=== PATIENT | male | born 1975 | race African-American/Black ===

== ENCOUNTER 2024-08-13 20:01 | Emergency (ER) | payer MEDICARE, SELFPAY ==
--- NOTE | ~2024-08-13 | XR_ITS ---
XR chest 2V Ordering provider: Leo Florence MD History: 48 years Male with . Chest pain . Comparison: None. FINDINGS: MEDIASTINUM: The cardiac silhouette is not enlarged. LUNGS: No infiltrates, effusions or pneumothorax. OTHER: No free air under the diaphragm. IMPRESSION: No acute cardiopulmonary pathology. Reviewed, dictated and finalized at location A. [facility]
[2024-08-13 20:03] VITALS: BP 123/80; PULSE 74; RESP 17; O2SAT 99
[2024-08-13 20:08] VITALS: O2SAT 98
[2024-08-13 20:09] VITALS: PULSE 79
[2024-08-13 20:10] VITALS: BP 123/80; PULSE 78; RESP 13; TEMP 36.6; O2SAT 99
--- NOTE | 2024-08-13 20:19 | ECG_ITS ---
Test Date: 2024-08-13 20:07:58 Measurements Intervals [place] Rate: 75 P: 38 NE: 179 QRS: 11 QRSD: 98 T: 1 QT: 355 QTc: 397 Interpretive Statements SINUS RHYTHM WITH SINUS ARRHYTHMIA INDETERMINATE AXIS ATYPICAL ECG No previous ECG available for comparison Electronically Signed On 08-14-2024 07:56:34 CDT by Petar Nuñez M.D.
[2024-08-13] MEDS: ASPIRIN 81 MG CHEWABLE TABLET 324 MG PO (20:31)
[2024-08-13] MEDS: SODIUM CHLORIDE 0.9% IV 1,000 ML 999 ML IV CONT (20:31)
--- OUTSIDE RECORDS SUMMARY | 2024-08-13 20:35 | XMS_ITS | Patient Health Summary ---
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 This disclosure is being madepursuant to the Care Everywhere program and may not contain all information available regarding this patient. Last updated 18.[facility] [place] Allergies No known active allergies Medications * Be aware that medications may not be up to date on this document. Alwaysverify current medications with the patient. 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 1 refill by 05/22/2021 * atorvastatin (Lipitor) 20 MG tablet(Started 06/28/2023) Take 0.5 (one-half) tablet by mouth once daily * gabapentin (Neurontin) 300 MG capsule(Started 08/24/2023) TAKE 1 Capsule BY MOUTH EVERY DAY IN THE EVENING * paliperidone CR 24hr (Invega) 9 MG tablet(Started 06/27/2023) * pantoprazole EC (Protonix) 40 MG tablet(Started 08/24/2023) Take 1 (one) tablet by mouth once daily * Semaglutide (2 MG/DOSE) 8 MG/3ML Subcutaneous Solution Pen-injector (Ozempic) (Started 05/07/2023) Inject 2 (two) mg subcutaneously every 7 days * metFORMIN (Glucophage) 1000 MG tablet(Started 06/01/2023) Take 1 (one) tablet by mouth 2 times daily * ondansetron, disintegrating, (Zofran ODT) 4 MG tablet(Started 04/18/2024) Take 1 (one) tablet by mouth every 6 hours as needed for Nausea/Vomiting Allow tablet to dissolve on the tongue * pantoprazole EC (Protonix) 40 MG tablet(Started 07/08/2024) Take 1 (one) tablet by mouth once daily * acetaminophen (Tylenol) 325 MG tablet(Started 07/11/2024) Take 2 (two) tablets by mouth every 6 hours as needed for Fever or Pain Maximum allowable Acetaminophen amount = 4 Grams (4000 mg) / 24 hours. Active Problems Problem Noted Date Diagnosed Date Malingering 02/20/2020 Gynecomastia 11/28/2019 Schizophrenia 08/03/2019 Paranoid schizophrenia 11/11/2018 Social History Tobacco Use Types Packs/Day Years Used Date Smoking Tobacco: Some Days Cigarettes Smokeless Tobacco: Never Tobacco Cessation:Ready to Q uit: Not Asked; Counseling Given: Not Answered Alcohol Use Standard Drinks/Week Comments Yes 0 (1 standard drink = 0.6 oz pur e alcohol) occasional Sex and Gender Information Value Date Recorded Sex Assigned at Not on file Gender Identity Not on file Sexual Orientation Not on file Last Filed Vital Signs Vital Sign Reading Time Taken Comments Blood Pressure 114/85 07/11/2024 5:39 PM [facility] Pulse 58 07/11/2024 5:39 PM [facility] Temperature 36.3 C (97.4 F) 07/11/2024 5:39 PM [facility] Respiratory Rate 18 07/11/2024 5:39 PM [facility] Oxygen Saturation 100% 07/11/2024 5:39 PM [facility] Inhaled Oxygen Concentration - - Weight 98.4 kg (217 lb) 07/11/2024 12:55 PM [facility] Height 175.3 cm (5' 9 ) 07/11/2024 12:55 PM [facility] Body Mass Index 32.05 07/11/2024 12:55 PM [facility] Procedures * URINALYSIS REFLEX MICROSCOPIC REFLEX CULTURE(Performed 07/11/2024) * CHLAMYDIA + GC AMPLIFIED PROBE(Performed 07/11/2024) * CARDIAC EKG ORDER(Performed 07/11/2024) * EKG 12-LEAD(Performed 07/07/2024) Performed for Other chest pain * TROPONIN-I HIGH SENSITIVE BASELINE + 1HR(Performed 07/07/2024) * MAGNESIUM BLOOD(Performed 07/07/2024) * COMPREHENSIVE METABOLIC PANEL(Performed 07/07/2024) * CBC W AUTO DIFFERENTIAL(Performed 07/07/2024) * XR CHEST 2VW(Performed 07/07/2024) Performed for Other chest pain * XR CHEST 2VW(Performed 04/18/2024) Performed for Dyspnea and respiratory abnormalities * URINALYSIS REFLEX MICROSCOPIC REFLEX CULTURE(Performed 04/17/2024) * HYDROXYBUTYRATE BETA(Performed 04/17/2024) * BLOOD GASES FARIDEH + COOX PANEL(Performed 04/17/2024) * MAGNESIUM BLOOD(Performed 04/17/2024) * COMPREHENSIVE METABOLIC PANEL(Performed 04/17/2024) * CBC W AUTO DIFFERENTIAL(Performed 04/17/2024) * CARDIAC EKG ORDER(Performed 01/14/2024) * GLUCOSE - POINT OF CARE(Performed 01/12/2024) * TROPONIN-I HIGH SENSITIVE REFLEX 1HOUR(Performed 01/12/2024) * EKG 12-LEAD(Performed 01/12/2024) Performed for Weakness * HYDROXYBUTYRATE BETA(Performed 01/12/2024) * BLOOD GASES FARIDEH + COOX PANEL(Performed 01/12/2024) * TROPONIN-I HIGH SENSITIVE BASELINE + 1HR(Performed 01/12/2024) * MAGNESIUM BLOOD(Performed 01/12/2024) * COMPREHENSIVE METABOLIC PANEL(Performed 01/12/2024) * CBC W AUTO DIFFERENTIAL(Performed 01/12/2024) * SARS-COV-2 (COVID-19) RAPID(Performed 01/12/2024) * XR CHEST 2VW(Performed 01/12/2024) Performed for Weakness * CARDIAC EKG ORDER(Performed 11/20/2023) * GLUCOSE - POINT OF CARE(Performed 11/19/2023) * EKG 12-LEAD(Performed 11/19/2023) Performed for Chest pain, unspecified type * TROPONIN-I HIGH SENSITIVE(Performed 11/19/2023) * URINALYSIS REFLEX MICROSCOPIC REFLEX CULTURE(Performed 11/19/2023) * PHOSPHORUS BLOOD(Performed 11/19/2023) * MAGNESIUM BLOOD(Performed 11/19/2023) * COMPREHENSIVE METABOLIC PANEL(Performed 11/19/2023) * CBC W AUTO DIFFERENTIAL(Performed 11/19/2023) * GLUCOSE - POINT OF CARE(Performed 10/17/2023) * GLUCOSE - POINT OF CARE(Performed 10/17/2023) * GLUCOSE - POINT OF CARE(Performed 10/17/2023) * GLUCOSE - POINT OF CARE(Performed 10/17/2023) * GLUCOSE - POINT OF CARE(Performed 10/17/2023) * GLUCOSE - POINT OF CARE(Performed 10/17/2023) * HYDROXYBUTYRATE BETA(Performed 10/17/2023) * COMPREHENSIVE METABOLIC PANEL(Performed 10/17/2023) * CBC W AUTO DIFFERENTIAL(Performed 10/17/2023) * GLUCOSE - POINT OF CARE(Performed 10/17/2023) * URINALYSIS REFLEX MICROSCOPIC REFLEX CULTURE(Performed 06/30/2023) * TRICHOMONAS VAGINALIS AMPLIFIED PROBE(Performed 06/30/2023) * CHLAMYDIA + GC AMPLIFIED PROBE(Performed 06/30/2023) * CT LUMBAR SPINE WO CONTRAST(Performed 06/30/2023) Performed for Numbness and tingling of left leg * CT CERVICAL SPINE WO CONTRAST(Performed 06/30/2023) Performed for Numbness and tingling of left leg * PHOSPHORUS BLOOD(Performed 06/30/2023) * MAGNESIUM BLOOD(Performed 06/30/2023) * COMPREHENSIVE METABOLIC PANEL(Performed 06/30/2023) * CBC W AUTO DIFFERENTIAL(Performed 06/30/2023) * URINALYSIS REFLEX TO MICROSCOPIC NO CULTURE(Performed 05/16/2020) * URINE DRUG SCREEN IMMUNOASSAY(Performed 05/16/2020) * CBC W AUTO DIFFERENTIAL(Performed 05/16/2020) * TSH REFLEX FREE T4(Performed 05/16/2020) * SYPHILIS ANTIBODY CASCADING REFLEX(Performed 05/16/2020) * LIPID PROFILE(Performed 05/16/2020) * COMPREHENSIVE METABOLIC PANEL(Performed 05/16/2020) * HEMOGLOBIN A1C(Performed 05/16/2020) * SARS-COV-2 (COVID-19) RAPID(Performed 05/15/2020) * GLUCOSE - POINT OF CARE(Performed 04/20/2020) * GLUCOSE - POINT OF CARE(Performed 04/20/2020) * GLUCOSE - POINT OF CARE(Performed 04/20/2020) * URINE MICROSCOPIC ONLY REFLEX TO CULTURE(Performed 02/20/2020) * URINALYSIS REFLEX MICROSCOPIC REFLEX CULTURE(Performed 02/20/2020) * URINE DRUG SCREEN IMMUNOASSAY(Performed 02/20/2020) * GLUCOSE - POINT OF CARE(Performed 02/20/2020) * GLUCOSE - POINT OF CARE(Performed 02/20/2020) * URINE DRUG SCREEN IMMUNOASSAY(Performed 10/09/2019) * BASIC METABOLIC PANEL (CALCIUM TOTAL)(Performed 10/09/2019) * CBC W AUTO DIFFERENTIAL(Performed 10/09/2019) * GLUCOSE - POINT OF CARE(Performed 10/08/2019) * GLUCOSE - POINT OF CARE(Performed 10/08/2019) * GLUCOSE - POINT OF CARE(Performed 10/07/2019) * GLUCOSE - POINT OF CARE(Performed 10/07/2019) * GLUCOSE - POINT OF CARE(Performed 10/07/2019) * GLUCOSE - POINT OF CARE(Performed 10/07/2019) * GLUCOSE - POINT OF CARE(Performed 10/06/2019) * GLUCOSE - POINT OF CARE(Performed 10/06/2019) * GLUCOSE - POINT OF CARE(Performed 10/06/2019) * GLUCOSE - POINT OF CARE(Performed 10/06/2019) * GLUCOSE - POINT OF CARE(Performed 10/05/2019) * GLUCOSE - POINT OF CARE(Performed 10/05/2019) * GLUCOSE - POINT OF CARE(Performed 10/05/2019) * GLUCOSE - POINT OF CARE(Performed 10/05/2019) * GLUCOSE - POINT OF CARE(Performed 10/04/2019) * GLUCOSE - POINT OF CARE(Performed 10/04/2019) * GLUCOSE - POINT OF CARE(Performed 10/04/2019) * GLUCOSE - POINT OF CARE(Performed 10/04/2019) * GLUCOSE - POINT OF CARE(Performed 10/03/2019) * GLUCOSE - POINT OF CARE(Performed 10/03/2019) * GLUCOSE - POINT OF CARE(Performed 10/03/2019) * GLUCOSE - POINT OF CARE(Performed 10/03/2019) * GLUCOSE - POINT OF CARE(Performed 10/02/2019) * GLUCOSE - POINT OF CARE(Performed 10/02/2019) * GLUCOSE - POINT OF CARE(Performed 10/02/2019) * GLUCOSE - POINT OF CARE(Performed 10/02/2019) * GLUCOSE - POINT OF CARE(Performed 10/01/2019) * GLUCOSE - POINT OF CARE(Performed 10/01/2019) * GLUCOSE - POINT OF CARE(Performed 10/01/2019) * GLUCOSE - POINT OF CARE(Performed 10/01/2019) * GLUCOSE - POINT OF CARE(Performed 09/30/2019) * GLUCOSE - POINT OF CARE(Performed 09/30/2019) * GLUCOSE - POINT OF CARE(Performed 09/30/2019) * GLUCOSE - POINT OF CARE(Performed 09/30/2019) * GLUCOSE - POINT OF CARE(Performed 09/29/2019) * GLUCOSE - POINT OF CARE(Performed 09/29/2019) * GLUCOSE - POINT OF CARE(Performed 09/29/2019) * GLUCOSE - POINT OF CARE(Performed 09/29/2019) * GLUCOSE - POINT OF CARE(Performed 09/29/2019) * GLUCOSE - POINT OF CARE(Performed 09/28/2019) * GLUCOSE - POINT OF CARE(Performed 09/28/2019) * COMPREHENSIVE METABOLIC PANEL(Performed 09/28/2019) * CBC W AUTO DIFFERENTIAL(Performed 09/28/2019) * GLUCOSE - POINT OF CARE(Performed 09/28/2019) * URINALYSIS REFLEX MICROSCOPIC REFLEX CULTURE(Performed 09/28/2019) * DRUG SCREEN URINE(Performed 09/28/2019) * GLUCOSE - POINT OF CARE(Performed 08/11/2019) * GLUCOSE - POINT OF CARE(Performed 08/11/2019) * GLUCOSE - POINT OF CARE(Performed 08/10/2019) * GLUCOSE - POINT OF CARE(Performed 08/10/2019) * GLUCOSE - POINT OF CARE(Performed 08/10/2019) * GLUCOSE - POINT OF CARE(Performed 08/10/2019) * GLUCOSE - POINT OF CARE(Performed 08/09/2019) * GLUCOSE - POINT OF CARE(Performed 08/09/2019) * GLUCOSE - POINT OF CARE(Performed 08/09/2019) * GLUCOSE - POINT OF CARE(Performed 08/09/2019) * GLUCOSE - POINT OF CARE(Performed 08/08/2019) * GLUCOSE - POINT OF CARE(Performed 08/08/2019) * GLUCOSE - POINT OF CARE(Performed 08/08/2019) * GLUCOSE - POINT OF CARE(Performed 08/08/2019) * GLUCOSE - POINT OF CARE(Performed 08/08/2019) * GLUCOSE - POINT OF CARE(Performed 08/07/2019) * GLUCOSE - POINT OF CARE(Performed 08/07/2019) * GLUCOSE - POINT OF CARE(Performed 08/07/2019) * GLUCOSE - POINT OF CARE(Performed 08/07/2019) * GLUCOSE - POINT OF CARE(Performed 08/06/2019) * GLUCOSE - POINT OF CARE(Performed 08/06/2019) * GLUCOSE - POINT OF CARE(Performed 08/06/2019) * GLUCOSE - POINT OF CARE(Performed 08/06/2019) * GLUCOSE - POINT OF CARE(Performed 08/05/2019) * GLUCOSE - POINT OF CARE(Performed 08/05/2019) * GLUCOSE - POINT OF CARE(Performed 08/05/2019) * GLUCOSE - POINT OF CARE(Performed 08/05/2019) * GLUCOSE - POINT OF CARE(Performed 08/04/2019) * GLUCOSE - POINT OF CARE(Performed 08/04/2019) * GLUCOSE - POINT OF CARE(Performed 08/04/2019) * GLUCOSE - POINT OF CARE(Performed 08/04/2019) * TSH REFLEX FREE T4(Performed 08/04/2019) * SYPHILIS ANTIBODY CASCADING REFLEX(Performed 08/04/2019) * LIPID PROFILE(Performed 08/04/2019) * HEMOGLOBIN A1C(Performed 08/04/2019) * GLUCOSE - POINT OF CARE(Performed 08/03/2019) * GLUCOSE - POINT OF CARE(Performed 08/03/2019) * GLUCOSE - POINT OF CARE(Performed 08/03/2019) * GLUCOSE - POINT OF CARE(Performed 08/03/2019) * GLUCOSE - POINT OF CARE(Performed 08/03/2019) * GLUCOSE - POINT OF CARE(Performed 08/03/2019) * GLUCOSE - POINT OF CARE(Performed 08/02/2019) * GLUCOSE - POINT OF CARE(Performed 08/02/2019) * URINALYSIS REFLEX MICROSCOPIC REFLEX CULTURE(Performed 08/02/2019) * URINE DRUG SCREEN IMMUNOASSAY(Performed 08/02/2019) * ALCOHOL ETHYL BLOOD(Performed 08/02/2019) * COMPREHENSIVE METABOLIC PANEL(Performed 08/02/2019) * CBC W AUTO DIFFERENTIAL(Performed 08/02/2019) * CARDIAC EKG ORDER(Performed 07/07/2019) * COMPREHENSIVE METABOLIC PANEL(Performed 07/06/2019) * CBC W AUTO DIFFERENTIAL(Performed 07/06/2019) * XR CHEST 2VW(Performed 07/06/2019) Performed for Dyspnea and respiratory abnormalities * EKG 12-LEAD(Performed 07/06/2019) Performed for Dyspnea and respiratory abnormalities * URINE MICROSCOPIC ONLY REFLEX TO CULTURE(Performed 05/25/2019) * URINALYSIS REFLEX MICROSCOPIC REFLEX CULTURE(Performed 05/25/2019) * URINE DRUG SCREEN IMMUNOASSAY(Performed 05/25/2019) * COMPREHENSIVE METABOLIC PANEL(Performed 05/25/2019) * CBC W AUTO DIFFERENTIAL(Performed 05/25/2019) * GLUCOSE - POINT OF CARE(Performed 11/16/2018) * GLUCOSE - POINT OF CARE(Performed 11/15/2018) * GLUCOSE - POINT OF CARE(Performed 11/15/2018) * GLUCOSE - POINT OF CARE(Performed 11/15/2018) * GLUCOSE - POINT OF CARE(Performed 11/15/2018) * GLUCOSE - POINT OF CARE(Performed 11/15/2018) * GLUCOSE - POINT OF CARE(Performed 11/14/2018) * GLUCOSE - POINT OF CARE(Performed 11/14/2018) * GLUCOSE - POINT OF CARE(Performed 11/13/2018) * GLUCOSE - POINT OF CARE(Performed 11/13/2018) * GLUCOSE - POINT OF CARE(Performed 11/13/2018) * GLUCOSE - POINT OF CARE(Performed 11/13/2018) * GLUCOSE - POINT OF CARE(Performed 11/12/2018) * GLUCOSE - POINT OF CARE(Performed 11/12/2018) * GLUCOSE - POINT OF CARE(Performed 11/12/2018) * GLUCOSE - POINT OF CARE(Performed 11/12/2018) * SYPHILIS ANTIBODY CASCADING REFLEX(Performed 11/12/2018) * LIPID PROFILE(Performed 11/12/2018) * HEMOGLOBIN A1C(Performed 11/12/2018) * TSH(Performed 11/12/2018) * GLUCOSE - POINT OF CARE(Performed 11/12/2018) * GLUCOSE - POINT OF CARE(Performed 11/11/2018) * GLUCOSE - POINT OF CARE(Performed 11/11/2018) * GLUCOSE - POINT OF CARE(Performed 11/11/2018) * GLUCOSE - POINT OF CARE(Performed 11/10/2018) * GLUCOSE - POINT OF CARE(Performed 11/10/2018) * GLUCOSE - POINT OF CARE(Performed 11/10/2018) * URINALYSIS REFLEX MICROSCOPIC REFLEX CULTURE(Performed 11/10/2018) * URINE DRUG SCREEN IMMUNOASSAY(Performed 11/10/2018) * COMPREHENSIVE METABOLIC PANEL(Performed 11/10/2018) * CBC W AUTO DIFFERENTIAL(Performed 11/10/2018) * URINE DRUG SCREEN IMMUNOASSAY(Performed 09/27/2016) * TSH(Performed 09/27/2016) * RPR(Performed 09/27/2016) * LIPID PROFILE(Performed 09/27/2016) * HEMOGLOBIN A1C(Performed 09/27/2016) * COMPREHENSIVE METABOLIC PANEL(Performed 09/27/2016) * CBC W AUTO DIFFERENTIAL(Performed 09/27/2016) * DRUG SCREEN TOX LIMITED BLD PNL 3 INHOUSE(Performed 10/06/2015) * COMPREHENSIVE METABOLIC PANEL(Performed 10/06/2015) * CBC W AUTO DIFFERENTIAL(Performed 10/06/2015) * URINALYSIS REFLEX TO MICROSCOPIC NO CULTURE(Performed 10/06/2015) * URINE DRUG SCREEN IMMUNOASSAY(Performed 10/06/2015) * CBC W AUTO DIFFERENTIAL(Performed 07/01/2015) * VALPROIC ACID LEVEL(Performed 07/01/2015) * TSH(Performed 06/26/2015) * RPR(Performed 06/26/2015) * URINE MICROSCOPIC ONLY(Performed 06/25/2015) * URINALYSIS REFLEX TO MICROSCOPIC NO CULTURE(Performed 06/25/2015) * URINE DRUG SCREEN IMMUNOASSAY(Performed 06/25/2015) * DRUG SCREEN TOX LIMITED BLD PNL 3 INHOUSE(Performed 06/25/2015) * COMPREHENSIVE METABOLIC PANEL(Performed 06/25/2015) * CBC W AUTO DIFFERENTIAL(Performed 06/25/2015) Results * CHLAMYDIA + GC AMPLIFIED PROBE (07/11/2024 7:27 PM [facility]) Only the most recent of2 resultswithin the time period is included. Chlamydia Amplified Probe Negative Negative 07/12/2024 6:42 AM [facility] GC Amplified Probe Negative Negative 07/12/2024 6:42 AM [facility] Microbiology URINE / Unknown Collection / Unknown 07/11/2024 7:27 PM [facility] 07/11/2024 7:30 PM [facility] Narrative [facility] - 07/12/2024 6:42 AM [facility] Results based on detection/no detection of ribosomal RNA by amplified method. Edilma Kyle MD LAB - MICROBIOLOGY O RDERABLES [facility] [address] [place] [address], [facility] [phone] * (ABNORMAL) URINALYSIS REFLEX MICROSCOPIC REFLEX CULTURE (07/11/2024 7:27 PM [facility]) Only the most recent of9 resultswithin the time period is included. Color UA Straw Straw, Yellow 07/11/2024 7:38 PM [facility] Clarity UA Clear Clear 07/11/2024 7:38 PM [facility] Specific [place] UA 1.007 1.005 - 1.030 07/11/2024 7:38 PM [facility] pH UA 6.0 5.0 - 8.0 pH 07/11/2024 7:38 PM [facility] Protein UA Negative Negative 07/11/2024 7:38 PM [facility] Glucose UA 3+(A) Negative 07/11/2024 7:38 PM [facility] Ketone UA Negative Negative 07/11/2024 7:38 PM [facility] Bilirubin UA Negative Negative 07/11/2024 7:38 PM [facility] Blood UA Negative Negative 07/11/2024 7:38 PM [facility] Nitrite UA Negative Negative 07/11/2024 7:38 PM [facility] Leukocyte Esterase Negative Negative 07/11/2024 7:38 PM [facility] Urobilinogen UA Negative Negative mg/dL 07/11/2024 7:38 PM [facility] Comment UA Microscopic not indicated. 07/11/2024 7:38 PM [facility] Urine URINE SPECIMEN OBTAINED BY CLEAN CATCH PROCEDURE / Unknown Collection / Unknown 07/11/2024 7:27 PM [facility] 07/11/2024 7:30 PM [facility] Narrative [facility] - 07/11/2024 7:38 PM [facility] Edilma Kyle MD LAB - URINALYSIS ORD ERABLES [facility] [address] [place] [id number], [facility] [phone] * CARDIAC EKG ORDER (07/11/2024 11:29 AM [facility]) Only the most recent of4 resultswithin the time period is included. Narrative 07/11/2024 11:29 AM [facility] Ordered by an unspecified provider. Scanned Document CARDIAC SERVICES ORD ERABLES * EKG 12-LEAD (07/07/2024 8:39 PM [facility]) Only the most recent of4 resultswithin the time period is included. [facility] Ventricular Rate 60 BPM [facility] MUSE Atrial Rate 60 BPM [facility] MUSE P-R Interval 186 ms [facility] MUSE QRS Duration ms 84 ms [facility] MUSE Q-T Interval ms 384 ms [facility] MUSE QTC Calculation (Bezet) 384 ms [facility] MUSE Calculated P [place] 70 degrees [facility] MUSE Calculated R [place] 45 degrees [facility] MUSE Calculated T [place] 27 degrees [facility] MUSE Interpretation EKG NORMAL SINUS RHYTHM NORMAL ECG WHEN COMPARED WITH ECG OF 12-JAN-2024 14:08, CRITERIA FOR INFERIOR INFARCT ARE NO LONGER PRESENT Confirmed by ANTONIO BARRON, VERONICA JORGE ([id number]) on 07/12/2024 8:53:31 PM [facility] 07/07/2024 8:39 PM [facility] 07/12/2024 8:53 PM [facility] Pastor Huff MD ECG ORDERABLES [facility] [place] * TROPONIN-I HIGH SENSITIVE BASELINE + 1HR (07/07/2024 8:31 PM [facility]) Only the most recent of2 resultswithin the time period is included. [facility] Troponin I High Sensitive <3 <=35 ng/L 07/07/2024 11:58 PM [facility] Blood BLOOD SPECIMEN / Unknown Venipuncture / Unknown 07/07/2024 8:31 PM [facility] 07/07/2024 9:11 PM [facility]TAKE MAN Vania Juárez [facility] COORDINATOR-DESIGN SPECIALIST LAB - FOOD SERVICE AGENT RY ORDERABLES [facility] [address] [place] [address], [facility] [phone] * CBC W AUTO DIFFERENTIAL (07/07/2024 8:31 PM [facility]) Only the most recent of17 resultswithin the time period is included. [facility] WBC 9.2 4.0 - 10.7 x10E9/L 07/07/2024 9:14 PM [facility] RBC Count 4.83 4.30 - 5.80 x10E12/L 07/07/2024 9:14 PM [facility] Hemoglobin 13.3 13.3 - 17.5 g/dL 07/07/2024 9:14 PM [facility] Hematocrit 39.8 38.7 - 51.1 % 07/07/2024 9:14 PM [facility] MCV 82.4 80.0 - 98.0 fL 07/07/2024 9:14 PM [facility] MCH 27.5 26.7 - 33.6 pg 07/07/2024 9:14 PM [facility] MCHC 33.4 31.7 - 36.3 g/dL 07/07/2024 9:14 PM [facility] RDW-CV 13.5 11.3 - 14.8 % 07/07/2024 9:14 PM [facility] Platelet Count 209 150 - 420 x10E9/L 07/07/2024 9:14 PM [facility] MPV 9.9 7.8 - 11.4 fL 07/07/2024 9:14 PM [facility] Neutrophil % 66.0 41.0 - 74.0 % 07/07/2024 9:14 PM [facility] Lymphocyte % 26.0 17.0 - 47.0 % 07/07/2024 9:14 PM [facility] Monocyte % 6.4 3.0 - 11.0 % 07/07/2024 9:14 PM [facility] Eosinophil % 1.1 0.0 - 7.0 % 07/07/2024 9:14 PM [facility] Basophil % 0.2 0.0 - 1.6 % 07/07/2024 9:14 PM [facility] Immature Granulocytes % 0.3 0.0 - 1.0 % 07/07/2024 9:14 PM [facility] Neutrophil Absolute 6.08 1.60 - 7.50 x10E9/L 07/07/2024 9:14 PM [facility] Lymphocyte Absolute 2.39 1.00 - 4.40 x10E9/L 07/07/2024 9:14 PM [facility] Monocyte Absolute 0.59 0.15 - 1.00 x10E9/L 07/07/2024 9:14 PM [facility] Eosinophil Absolute 0.10 0.00 - 0.60 x10E9/L 07/07/2024 9:14 PM [facility] Basophil Absolute 0.02 0.00 - 0.13 x10E9/L 07/07/2024 9:14 PM [facility] Blood BLOOD SPECIMEN / Unknown Venipuncture / Unknown 07/07/2024 8:31 PM [facility] 07/07/2024 9:11 PM INTAKE MAN Vania Juárez APRN-DESIGN SPECIALIST LAB - HEMATOL OGY ORDERABLES [facility] [address] [place] [address], [facility] [phone] * (ABNORMAL) COMPREHENSIVE METABOLIC PANEL (07/07/2024 8:31 PM [facility]TAKE [facility]) Only the most recent of15 resultswithin the time period is included. BUN 9 7 - 26 mg/dL 07/08/2024 12:10 AM [facility] Creatinine 0.77 0.71 - 1.16 mg/dL 07/08/2024 12:10 AM [facility] Sodium 140 136 - 145 mmol/L 07/08/2024 12:10 AM [facility] Potassium 3.8 3.5 - 4.5 mmol/L 07/08/2024 12:10 AM [facility] Chloride 109(H) 98 - 107 mmol/L 07/08/2024 12:10 AM [facility] CO2 19(L) 22 - 29 mmol/L 07/08/2024 12:10 AM [facility] Glucose 185(H) 70 - 99 mg/dL 07/08/2024 12:10 AM [facility] Calcium 9.3 8.4 - 10.2 mg/dL 07/08/2024 12:10 AM [facility] Protein Total 6.8 6.0 - 8.3 g/dL 07/08/2024 12:10 AM [facility] Albumin 3.9 3.4 - 5.0 g/dL 07/08/2024 12:10 AM [facility] Bilirubin Total 0.3 0.2 - 1.2 mg/dL 07/08/2024 12:10 AM [facility] Alkaline Phosphatase 113 40 - 150 U/L 07/08/2024 12:10 AM [facility] ALT 42 5 - 55 U/L 07/08/2024 12:10 AM [facility] AST 28 5 - 34 U/L 07/08/2024 12:10 AM [facility] Anion Gap 12 6 - 16 07/08/2024 12:10 AM [facility] BUN/Creatinine Ratio 12 7 - 23 07/08/2024 12:10 AM [facility] Osmolality Calculated 293 275 - 295 mOsm/kg 07/08/2024 12:10 AM [facility] Albumin/Globulin Ratio 1.3 1.1 - 2.3 07/08/2024 12:10 AM [facility] eGFR by CKD-EPI >90 >=90 mL/min/1.7 3 m2 07/08/2024 12:10 AM [facility] Blood BLOOD SPECIMEN / Unknown Venipuncture / Unknown 07/07/2024 8:31 PM [facility]TA[facility] 07/07/2024 9:11 PM INTAKE MAN Vania Juárez REC[employer] COORDINATOR-DESIGN SPECIALIST LAB - FOOD SERVICE AGENT RY ORDERABLES Performing Organization Address City/State/[facility] Co de Phone Number [address] [address], [facility] [phone] * MAGNESIUM BLOOD (07/07/2024 8:31 PM [facility]TAKE MAN) Only the most recent of5 resultswithin the time period is included. Magnesium 1.9 1.6 - 2.6 mg/dL 07/07/2024 11:58 PM [facility] Blood BLOOD SPECIMEN / Unknown Venipuncture / Unknown 07/07/2024 8:31 PM INTAKE MAN 07/07/2024 9:11 PM INTAKE MAN Vania Juárez RECORD CENTER COORDINATOR-DESIGN SPECIALIST LAB - FOOD SERVICE AGENT RY ORDERABLES [facility] [address] [place] [id number], [facility] [phone] * XR CHEST 2VW (07/07/2024 8:21 PM INTAKE MAN) Only the most recent of4 resultswithin the time period is included. Anatomical Region Laterality Modality Chest Digital Radiogra phy 07/07/2024 8:55 PM INTAKE MAN Impressions 07/08/2024 8:46 AM INTAKE MAN IMPRESSION: No acute pulmonary process. > Dictated by Jackson Sanches DO (Residential Appliance Repair Technician), 07/07/2024 8:55 PM. ILeslye MD have personally reviewed and interpreted this examination/study. > Interpreting Provider: Leslye Downs MD on 07/08/2024 8:46 AM Narrative 07/08/2024 8:46 AM INTAKE MAN PROCEDURE: XR CHEST 2VW, DATE/TIME OF EXAM: 07/07/2024 8:21 PM, LOCATION [facility] INDICATION: R07.89: Other chest pain ADDITIONAL CLINICAL INFORMATION: Ordering Provider Reason For Exam: chest pain COMPARISON: Chest x-ray 04/18/2024 FINDINGS: There is no focal consolidation, pleural effusion, or pneumothorax. The cardiomediastinal silhouette is normal. The bony thorax is intact. Cholecystectomy clips in the right upper abdominal quadrant. Procedure Note Leslye Downs MD - 07/08/2024 PROCEDURE: XR CHEST 2VW, DATE/TIME OF EXAM: 07/07/2024 8:21 PM, LOCATION [facility] INDICATION: R07.89: Other chest pain ADDITIONAL CLINICAL INFORMATION: Ordering Provider Reason For Exam: chest pain COMPARISON: Chest x-ray 04/18/2024 FINDINGS: There is no focal consolidation, pleural effusion, or pneumothorax. The cardiomediastinal silhouette is normal. The bony thorax is intact. Cholecystectomy clips in the right upper abdominal quadrant. IMPRESSION: No acute pulmonary process. > Dictated by Jackson Sanches DO (Residential Appliance Repair Technician), 07/07/2024 8:55 PM. I, Leslye Downs MD have personally reviewed and interpreted this examination/study. > Interpreting Provider: Leslye Downs MD on 07/08/2024 8:46 AM Vania Juárez RECORD CENTER COORDINATOR-DESIGN SPECIALIST DIAGNOSTIC IM AGING ORDERABLES * (ABNORMAL) BLOOD GASES FARIDEH + COOX PANEL (04/17/2024 9:21 PM INTAKE MAN) Only the most recent of2 resultswithin the time period is included. pH Venous 7.37 7.32 - 7.42 pH 04/17/2024 9:29 PM [facility] pO2 Venous 44(H) 35 - 40 mmHg 04/17/2024 9:29 PM [facility] pCO2 Venous 44 40 - 50 mmHg 04/17/2024 9:29 PM [facility] HCO3 Venous 25.4 20 - 30 mmol/L 04/17/2024 9:29 PM [facility] Base Excess Venous -0.2 -2.0 - 2.0 mmol/L 04/17/2024 9:29 PM [facility] Oxyhemoglobin Venous 73.9 % 04/08 9:29 PM [facility] Deoxyhemoglobin (HHB) Venous % 23.8 % 04/17/2024 9:29 PM [facility] Methemoglobin 0.9 0.0 - 2.0 % 04/17/2024 9:29 PM [facility] Carboxyhemoglobin 1.4 0.0 - 2.0 % 2023 9:29 PM [facility] O2 Content Venous 14.7 Interpret within clinical context ml/dL 04/17/2024 9:29 PM [facility] Hemoglobin by COOX 14.2 12.0 - 17.6 g/dL 04/17/2024 9:29 PM [facility] O2 Saturation Venous 76 >=70 % 04/08 9:29 PM [facility] FI O2 Mixed Venous 21.0 % 2023 9:29 PM [facility] Blood BLOOD SPECIMEN / Unknown Venipuncture / Unknown 04/17/2024 9:21 PM INTAKE MAN 04/17/2024 9:27 PM INTAKE MAN Narrative [facility] - 04/17/2024 9:29 PM INTAKE MAN Carboxyhemoglobin Normal Concentration: Non-smokers: 0-2%; Smokers: 0-9%; Toxic: >20% Alta Roland APRN-DESIGN SPECIALIST LAB - BLOOD GASES ORDERABLES [address] [address], [place] [phone] * HYDROXYBUTYRATE BETA (04/17/2024 9:21 PM INTAKE MAN) Only the most recent of3 resultswithin the time period is included. Beta-Hydroxybu tyrate <0.50 <0.50 mmol/L 04/17/2024 9:59 PM INTAKE MAN [facility] Blood BLOOD SPECIMEN / Unknown Venipuncture / Unknown 04/17/2024 9:21 PM INTAKE MAN 04/17/2024 9:28 PM INTAKE MAN Alta Roland APRN-DESIGN SPECIALIST LAB - CHEMIS TRY ORDERABLES Performing Organization Address City/[facility]/ZIP Co de Phone Number [address] [address], [place] [phone] * (ABNORMAL) GLUCOSE - POINT OF CARE (01/12/2024 9:50 PM CDT) Only the most recent of118 resultswithin the time period is included. Glucose WB/POC 175(H) 70 - 115 mg/dL 01/12/2024 9:55 PM CDT [facility] Specimen Type Cap Fingerstick 2023 9:55 PM CDT [facility] Blood BLOOD SPECIMEN / Unknown 01/12/2024 9:50 PM CDT 01/12/2024 9:55 PM CDT Ilda Marroquin MD LAB - POINT OF CARE ORDERABLES Performing Organization Address City/[facility]/ZIP Co de Phone Number [address] [address], [place] [phone] * TROPONIN-I HIGH SENSITIVE REFLEX 1HOUR (01/12/2024 4:22 PM CDT) Troponin I High Sensitive <3 <=35 ng/L 01/12/2024 5:05 PM CDT [facility] Delta Troponin I HS 01/12/2024 5:05 PM CDT [facility] Comment:Delta value intentio caden not calculated. Baseline to 1 hour specimen collection interval exceeded. Blood BLOOD SPECIMEN / Unknown Venipuncture / Unknown 01/12/2024 4:22 PM CDT 01/12/2024 4:29 PM CDT Alta Roland RECORD CENTER COORDINATOR-DESIGN SPECIALIST LAB - CHEMIS TRY ORDERABLES [facility] [address] [place] [phone], [facility] [phone] * SARS-COV-2 (COVID-19) RAPID (01/12/2024 1:26 PM CDT) Only the most recent of2 resultswithin the time period is included. COVID-19 PCR Not detected Not detected 01/12/20 24 2:23 PM CDT [facility] Microbiology SPECIMEN FROM NASOPHARYNGEAL STRUCTURE / Unknown Collection / Unknown 01/12/2024 1:26 PM CDT 01/12/2024 1:46 PM CDT Narrative [facility] - 01/12/2024 2:23 PM CDT The Cepheid Xpert Xpress SARS-COV-2 has been authorized by the Food and Drug Administration (FDA) under an Emergency Use Authorization (EUA). This test has been validated in accordance with the FDA's guidance document Policy for Diagnostic Testing in Laboratories Certified to perform High Complexity Testing under CLIA prior to Emergency Use Authorization for Coronavirus Disease-2019 during the Public Health Emergency issued on August 06, 2019. FDA independent review of this validation is pending. This test is only authorized for the duration of the time the declaration that circumstances exist justifying the authorization of emergency use of in vitro diagnostic tests for detection of SARS-COV-2 virus and/or diagnosis of COVID-19 infection under 564(b) (1) of the Act. 21 U.S.C. 360bbb-3 (b) (1), unless the authorization is terminated or revoked sooner. Fact Sheets for this EUA assay are available upon request. Alta Roland RECORD CENTER COORDINATOR-DESIGN SPECIALIST LAB - MICROB IOLOGY ORDERABLES Performing Organization Address City/[facility]/ZIP Co de Phone Number [address] [address], [facility] [phone] * TROPONIN-I HIGH SENSITIVE (11/19/2023 5:16 AM CDT) Troponin I High Sensitive <3 <=35 ng/L 11/19/2023 6:02 AM CDT [facility] Blood BLOOD SPECIMEN / Unknown Venipuncture / Unknown 11/19/2023 5:16 AM CDT 11/19/2023 5:25 AM CDT Dalia Giron MD LAB - CHEMISTRY [facility] Performing Organization Address [facility]/ZIP Co de Phone Number [address] [address], [facility] [phone] * PHOSPHORUS BLOOD (11/19/2023 2:11 AM CDT) Only the most recent of2 resultswithin the time period is included. Phosphorus 3.7 2.8 - 5.1 mg/dL 11/19/2023 2:57 AM CDT [facility] Blood BLOOD SPECIMEN / Unknown Venipuncture / Unknown 11/19/2023 2:11 AM CDT 11/19/2023 2:24 AM CDT Pastor Huff MD LAB - CHEMISTRY [facility] Performing Organization Address City/[facility]/ZIP Co de Phone Number [address] [address], [facility] [phone] * TRICHOMONAS VAGINALIS AMPLIFIED PROBE (06/30/2023 5:00 PM INTAKE MAN) Trichomonas vaginalis Amplified Probe Negative Negative 07/01/2023 6:03 AM INTAKE MAN [facility] Microbiology URINE / Unknown Collection / Unknown 06/30/2023 5:00 PM INTAKE MAN 06/30/2023 5:04 PM INTAKE MAN Narrative [facility] - 07/01/2023 6:03 AM INTAKE MAN This test was developed and its performance characteristics determined by the [facility], [facility]. Urine specimens tested by the [facility] have not been cleared or approved by the U.S. Food and Drug Administration (FDA). The laboratory is regulated under the Clinical Laboratory Improvement Amendments (CLIA) as qualified to perform high-complexity testing. This test is used for clinical purposes. It should not be regarded as investigational or for research. Results based on detection/no detection of ribosomal RNA by amplified method. Pastor Huff MD [facility] Performing Organization Address City/State/[facility] Co de Phone Number [facility] [address] [place] [phone] * CT LUMBAR SPINE WO CONTRAST (06/30/2023 4:04 PM INTAKE MAN) Anatomical Region Laterality Modality Spine Computed Tomogra phy 06/30/2023 5:11 PM INTAKE MAN Impressions 06/30/2023 6:07 PM INTAKE MAN IMPRESSION: No acute fracture or traumatic malalignment of the cervical or lumbar spine. Report dictated by Sebastian Jones MD, PhD (information services vice president). I, Foreign Bolivar MD, PhD have personally reviewed and interpreted this examination/study. > Interpreting Provider: Foreign Bolivar MD, PhD on 06/30/2023 6:07 PM Narrative 06/30/2023 6:07 PM INTAKE MAN EXAM: CT CERVICAL SPINE WO CONTRAST, CT LUMBAR SPINE WO CONTRAST, DATE/TIME OF EXAM: 06/30/2023 4:05 PM, LOCATION: [facility] HISTORY: R20.0: Numbness and tingling of left leg R20.2: Numbness and tingling of left leg ADDITIONAL CLINICAL INFORMATION: Ordering Provider Reason For Exam: left sided burning sensation (accession [id number]), left leg numbness (accession [id number]) EXAMINATION: CT scan of the cervical and lumbar spine without intravenous contrast. TECHNIQUE: CT of the cervical and lumbar spine was performed without intravenous contrast according to standard protocol. CT dose reduction technique was used, including Automated Exposure Control. COMPARISON: No prior similar studies are available for comparison. FINDINGS: CERVICAL SPINE: ALIGNMENT: Mild reversal of cervical spine lordotic curvature without significant listhesis, which may be positional or related to muscle spasm. No traumatic malalignment. ATLANTOAXIAL JOINT: The dens is intact, the lateral masses of C1 are normally aligned relative to C2, and the atlantodental interval is normal. BONES: Vertebral body heights are maintained without evidence of acute fracture. Mild demineralization of the osseous structures. DISCS: Multilevel disc space narrowing. DEGENERATIVE CHANGES: Overall mild multilevel degenerative changes, characterized by varying degrees of posterior disc bulges, facet arthropathy, and uncovertebral joint hypertrophy. SPINAL CANAL/NEUROFORAMEN: Moderate spinal canal stenosis at the C5-C6 level secondary to a posterior disc bulge. Multilevel neuroforaminal narrowing that is notably kfrvtjqy-an-anaiix at the bilateral C3-C4 level, moderate at the bilateral C4-C5 level, and jsevxhyq-zj-pdzonr at the bilateral C5-C6 level secondary to uncovertebral joint hypertrophy. SOFT TISSUES: No prevertebral soft tissue swelling. Visualized neck soft tissues are normal. OTHER: Partially imaged portions of the lung apices are clear. Yjps-dx-tfpkcfca right and mild left mucosal thickening of the right maxillary sinuses. LUMBAR SPINE: ALIGNMENT: Straightening of lumbar spinal lordotic curvature without significant listhesis. No traumatic malalignment. BONES: Vertebral body heights are maintained without evidence of acute fracture. Small well-corticated ossific densities along the right lateral aspect of the L3 on L4 transverse processes, which favor chronic healed transverse process fractures. Tiny well-corticated ossific density along the left L3 inferior articular facet measuring 3 mm (6/42), which either represents an ossification center or sequela of prior healed trauma. Right aspect of the L2 vertebral body with a sclerotic focus measuring up to 10 mm, which is consistent with an incidentally noted benign enostosis (i.e. bone island). DISCS: Multilevel minimal disc space narrowing. DEGENERATIVE CHANGES: Overall mild multilevel degenerative changes, characterized by varying degrees of posterior disc bulges. SPINAL CANAL/NEUROFORAMEN: Multilevel spinal canal stenoses that is mild at the L2-L3 and L3-L4 levels, moderate at the L4-L5 level, and mild at the L5-S1 level secondary to posterior disc bulges. Moderate neuroforaminal narrowing at the left L5-S1 level secondary to a posterior disc bulge asymmetric the left with left neuroforaminal involvement at that level. SOFT TISSUES: Visualized soft tissues are normal. OTHER: Surgically absent gallbladder. Scattered sigmoid colon diverticula without evidence of diverticulitis. Procedure Note Foreign Bolivar MD - 06/30/2023 EXAM: CT CERVICAL SPINE WO CONTRAST, CT LUMBAR SPINE WO CONTRAST,DATE/TIME OF EXAM: 06/30/2023 4:05 PM, LOCATION: [facility] HISTORY: R20.0: Numbness and tingling of left leg R20.2: Numbness and tingling of left leg ADDITIONAL CLINICAL INFORMATION: Ordering Provider Reason For Exam: left sided burning sensation(accession [id number]), left leg numbness (accession [id number]) EXAMINATION: CT scan of the cervical and lumbar spine without intravenous contrast. TECHNIQUE: CT of the cervical and lumbar spine was performed without intravenous contrast according to standard protocol. CT dose reduction technique was used, including Automated Exposure Control. COMPARISON: No prior similar studies are available for comparison. FINDINGS: CERVICAL SPINE: ALIGNMENT: Mild reversal of cervical spine lordotic curvature without significant listhesis, which may be positional or related to musclespasm. No traumatic malalignment. ATLANTOAXIAL JOINT: The dens is intact, the lateral masses of C1 are normally aligned relative to C2, and the atlantodental interval is normal. BONES: Vertebral body heights are maintained without evidence of acute fracture. Mild demineralization of the osseous structures. DISCS: Multilevel disc space narrowing. DEGENERATIVE CHANGES: Overall mild multilevel degenerative changes, characterized by varying degrees of posterior disc bulges, facet arthropathy, and uncovertebral joint hypertrophy. SPINAL CANAL/NEUROFORAMEN: Moderate spinal canal stenosis at the C5-C6 level secondary to a posterior disc bulge. Multilevel neuroforaminal narrowing that is notably qpgnzslt-bd-tjnhxn at the bilateral C3-G7witur, moderate at the bilateral C4-C5 level, and elmozzqe-yz-dduhxx at the bilateral C5-C6 level secondary to uncovertebral joint hypertrophy. SOFT TISSUES: No prevertebral soft tissue swelling. Visualized neck soft tissues are normal. OTHER: Partially imaged portions of the lung apices are clear. Foyb-dx-jntpupia right and mild left mucosal thickening of the right maxillary sinuses. LUMBAR SPINE: ALIGNMENT: Straightening of lumbar spinal lordotic curvature without significant listhesis. No traumatic malalignment. BONES: Vertebral body heights are maintained without evidence of acute fracture. Small well-corticated ossific densities along the rightlateral aspect of the L3 on L4 transverse processes, which favor chronic healed transverse process fractures. Tiny well-corticated ossific density along the left L3 inferior articular facet measuring 3 mm (6/42), which either represents an ossification center or sequela of prior healed trauma.Right aspect of the L2 vertebral body with a sclerotic focus measuring up to10 mm, which is consistent with an incidentally noted benign enostosis(i.e. bone island). DISCS: Multilevel minimal disc space narrowing. DEGENERATIVE CHANGES: Overall mild multilevel degenerative changes, characterized by varying degrees of posterior disc bulges. SPINAL CANAL/NEUROFORAMEN: Multilevel spinal canal stenoses that is mildat the L2-L3 and L3-L4 levels, moderate at the L4-L5 level, and mild at the L5-S1 level secondary to posterior disc bulges. Moderate neuroforaminal narrowing at the left L5-S1 level secondary to a posterior disc bulge asymmetric the left with left neuroforaminal involvement at that level. SOFT TISSUES: Visualized soft tissues are normal. OTHER: Surgically absent gallbladder. Scattered sigmoid colondiverticula without evidence of diverticulitis. IMPRESSION: No acute fracture or traumatic malalignment of the cervical or lumbar spine. Report dictated by Sebastian Jones MD, PhD (information services vice president). I, Foreign Bolivar MD, PhD have personally reviewed and interpreted this examination/study. > Interpreting Provider: Foreign Bolivar MD, PhD on 06/30/2023 6:07 PM Pastor Huff MD CT ORDERABLES * CT CERVICAL SPINE WO CONTRAST (06/30/2023 4:04 PM INTAKE MAN) Anatomical Region Laterality Modality Spine Computed Tomogra phy 06/30/2023 5:11 PM INTAKE MAN Impressions 06/30/2023 6:07 PM INTAKE MAN IMPRESSION: No acute fracture or traumatic malalignment of the cervical or lumbar spine. Report dictated by Sebastian Jones MD, PhD (information services vice president). I, Foreign Bolivar MD, PhD have personally reviewed and interpreted this examination/study. > Interpreting Provider: Foreign Bolivar MD, PhD on 06/30/2023 6:07 PM Narrative 06/30/2023 6:07 PM INTAKE MAN EXAM: CT CERVICAL SPINE WO CONTRAST, CT LUMBAR SPINE WO CONTRAST, DATE/TIME OF EXAM: 06/30/2023 4:05 PM, LOCATION: [facility] HISTORY: R20.0: Numbness and tingling of left leg R20.2: Numbness and tingling of left leg ADDITIONAL CLINICAL INFORMATION: Ordering Provider Reason For Exam: left sided burning sensation (accession [id number]), left leg numbness (accession [id number]) EXAMINATION: CT scan of the cervical and lumbar spine without intravenous contrast. TECHNIQUE: CT of the cervical and lumbar spine was performed without intravenous contrast according to standard protocol. CT dose reduction technique was used, including Automated Exposure Control. COMPARISON: No prior similar studies are available for comparison. FINDINGS: CERVICAL SPINE: ALIGNMENT: Mild reversal of cervical spine lordotic curvature without significant listhesis, which may be positional or related to muscle spasm. No traumatic malalignment. ATLANTOAXIAL JOINT: The dens is intact, the lateral masses of C1 are normally aligned relative to C2, and the atlantodental interval is normal. BONES: Vertebral body heights are maintained without evidence of acute fracture. Mild demineralization of the osseous structures. DISCS: Multilevel disc space narrowing. DEGENERATIVE CHANGES: Overall mild multilevel degenerative changes, characterized by varying degrees of posterior disc bulges, facet arthropathy, and uncovertebral joint hypertrophy. SPINAL CANAL/NEUROFORAMEN: Moderate spinal canal stenosis at the C5-C6 level secondary to a posterior disc bulge. Multilevel neuroforaminal narrowing that is notably weehjrpn-wt-obxejo at the bilateral C3-C4 level, moderate at the bilateral C4-C5 level, and uasijtvy-eo-qoiaeh at the bilateral C5-C6 level secondary to uncovertebral joint hypertrophy. SOFT TISSUES: No prevertebral soft tissue swelling. Visualized neck soft tissues are normal. OTHER: Partially imaged portions of the lung apices are clear. Pxgd-lu-jkpzjtie right and mild left mucosal thickening of the right maxillary sinuses. LUMBAR SPINE: ALIGNMENT: Straightening of lumbar spinal lordotic curvature without significant listhesis. No traumatic malalignment. BONES: Vertebral body heights are maintained without evidence of acute fracture. Small well-corticated ossific densities along the right lateral aspect of the L3 on L4 transverse processes, which favor chronic healed transverse process fractures. Tiny well-corticated ossific density along the left L3 inferior articular facet measuring 3 mm (6/42), which either represents an ossification center or sequela of prior healed trauma. Right aspect of the L2 vertebral body with a sclerotic focus measuring up to 10 mm, which is consistent with an incidentally noted benign enostosis (i.e. bone island). DISCS: Multilevel minimal disc space narrowing. DEGENERATIVE CHANGES: Overall mild multilevel degenerative changes, characterized by varying degrees of posterior disc bulges. SPINAL CANAL/NEUROFORAMEN: Multilevel spinal canal stenoses that is mild at the L2-L3 and L3-L4 levels, moderate at the L4-L5 level, and mild at the L5-S1 level secondary to posterior disc bulges. Moderate neuroforaminal narrowing at the left L5-S1 level secondary to a posterior disc bulge asymmetric the left with left neuroforaminal involvement at that level. SOFT TISSUES: Visualized soft tissues are normal. OTHER: Surgically absent gallbladder. Scattered sigmoid colon diverticula without evidence of diverticulitis. Procedure Note Foreign Bolivar MD - 06/30/2023 EXAM: CT CERVICAL SPINE WO CONTRAST, CT LUMBAR SPINE WO CONTRAST,DATE/TIME OF EXAM: 06/30/2023 4:05 PM, LOCATION: [facility] HISTORY: R20.0: Numbness and tingling of left leg R20.2: Numbness and tingling of left leg ADDITIONAL CLINICAL INFORMATION: Ordering Provider Reason For Exam: left sided burning sensation(accession [id number]), left leg numbness (accession [id number]) EXAMINATION: CT scan of the cervical and lumbar spine without intravenous contrast. TECHNIQUE: CT of the cervical and lumbar spine was performed without intravenous contrast according to standard protocol. CT dose reduction technique was used, including Automated Exposure Control. COMPARISON: No prior similar studies are available for comparison. FINDINGS: CERVICAL SPINE: ALIGNMENT: Mild reversal of cervical spine lordotic curvature without significant listhesis, which may be positional or related to musclespasm. No traumatic malalignment. ATLANTOAXIAL JOINT: The dens is intact, the lateral masses of C1 are normally aligned relative to C2, and the atlantodental interval is normal. BONES: Vertebral body heights are maintained without evidence of acute fracture. Mild demineralization of the osseous structures. DISCS: Multilevel disc space narrowing. DEGENERATIVE CHANGES: Overall mild multilevel degenerative changes, characterized by varying degrees of posterior disc bulges, facet arthropathy, and uncovertebral joint hypertrophy. SPINAL CANAL/NEUROFORAMEN: Moderate spinal canal stenosis at the C5-C6 level secondary to a posterior disc bulge. Multilevel neuroforaminal narrowing that is notably kcdfvqsv-ja-ngbzel at the bilateral C3-W8afigf, moderate at the bilateral C4-C5 level, and thenkood-ve-zwcxgk at the bilateral C5-C6 level secondary to uncovertebral joint hypertrophy. SOFT TISSUES: No prevertebral soft tissue swelling. Visualized neck soft tissues are normal. OTHER: Partially imaged portions of the lung apices are clear. Objr-qh-mmznopdz right and mild left mucosal thickening of the right maxillary sinuses. LUMBAR SPINE: ALIGNMENT: Straightening of lumbar spinal lordotic curvature without significant listhesis. No traumatic malalignment. BONES: Vertebral body heights are maintained without evidence of acute fracture. Small well-corticated ossific densities along the rightlateral aspect of the L3 on L4 transverse processes, which favor chronic healed transverse process fractures. Tiny well-corticated ossific density along the left L3 inferior articular facet measuring 3 mm (6/42), which either represents an ossification center or sequela of prior healed trauma.Right aspect of the L2 vertebral body with a sclerotic focus measuring up to10 mm, which is consistent with an incidentally noted benign enostosis(i.e. bone island). DISCS: Multilevel minimal disc space narrowing. DEGENERATIVE CHANGES: Overall mild multilevel degenerative changes, characterized by varying degrees of posterior disc bulges. SPINAL CANAL/NEUROFORAMEN: Multilevel spinal canal stenoses that is mildat the L2-L3 and L3-L4 levels, moderate at the L4-L5 level, and mild at the L5-S1 level secondary to posterior disc bulges. Moderate neuroforaminal narrowing at the left L5-S1 level secondary to a posterior disc bulge asymmetric the left with left neuroforaminal involvement at that level. SOFT TISSUES: Visualized soft tissues are normal. OTHER: Surgically absent gallbladder. Scattered sigmoid colondiverticula without evidence of diverticulitis. IMPRESSION: No acute fracture or traumatic malalignment of the cervical or lumbar spine. Report dictated by Sebastian Jones MD, PhD (information services vice president). I, Foreign Bolivar MD, PhD have personally reviewed and interpreted this examination/study. > Interpreting Provider: Foreign Bolivar MD, PhD on 06/30/2023 6:07 PM Pastor Huff MD CT ORDERABLES * (ABNORMAL) URINALYSIS REFLEX TO MICROSCOPIC NO CULTURE (05/16/2020 3:19 AM INTAKE MAN) Only the most recent of3 resultswithin the time period is included. Color UA Yellow Straw, Yellow 05/16/2020 3:35 AM INTAKE MAN [facility] Clarity UA Clear Clear 05/16/2020 3:35 AM INTAKE MAN [facility] Glucose UA 3+(A) Negative 05/16/2020 3:35 AM INTAKE MAN [facility] Bilirubin UA Negative Negative 05/16/2020 3:35 AM INTAKE MAN [facility] Ketone UA Trace(A) Negative 05/16/2020 3:35 AM INTAKE MAN [facility] Specific Mann[place] UA 1.029 1.005 - 1.030 05/16/2020 3:35 AM INTAKE MAN [facility] Blood UA Negative Negative 05/16/2020 3:35 AM INTAKE MAN [facility] pH UA 5.0 5.0 - 8.0 pH 05/16/2020 3:35 AM INTAKE MAN [facility] Protein UA Negative Negative 05/16/2020 3:35 AM INTAKE MAN [facility] Urobilinogen UA Negative Negative mg/dL 05/16/2020 3:35 AM INTAKE MAN [facility] Nitrite UA Negative Negative 05/16/2020 3:35 AM INTAKE MAN [facility] Leukocyte UA Negative Negative 05/16/2020 3:35 AM INTAKE MAN [facility] Urine Microscopy Urine microscopy not indicated 05/16/2020 3:35 AM INTAKE MAN [facility] Urine URINE SPECIMEN OBTAINED BY CLEAN CATCH PROCEDURE / Unknown Collection / Unknown 05/16/2020 3:19 AM INTAKE MAN 05/16/2020 3:27 AM INTAKE MAN Narrative [facility] - 05/16/2020 3:35 AM INTAKE MAN Joanna Esteban RECORD CENTER COORDINATOR-BOILER FIREMAN LAB - URINALYSIS ORDERABLES [facility] [address] [place] [address] * DRUG SCREEN TOX URINE PANEL (05/16/2020 3:19 AM INTAKE MAN) Only the most recent of9 resultswithin the time period is included. Amphetamines Screen Urine Not detected Not detected 05/16/2020 3:50 AM INTAKE MAN [facility] Barbiturates Screen Urine Not detected Not detected 05/16/2020 3:50 AM INTAKE MAN [facility] Benzodiazepines Screen Urine Not detected Not detected 05/16/2020 3:50 AM INTAKE MAN [facility] Cannabinoids Screen Urine Not detected Not detected 05/16/2020 3:50 AM INTAKE MAN [facility] Cocaine Screen Urine Not detected Not detected 05/16/2020 3:50 AM [facility] Fentanyl Urine Not detected Not detected 05/16/2020 3:50 AM INTAKE MAN [facility] Methadone Screen Urine Not detected Not detected 05/16/2020 3:50 AM INTAKE MAN [facility] Opiate Screen Urine Not detected Not detected 05/16/2020 3:50 AM [facility] Phencyclidine Screen Urine Not detected Not detected 05/16/2020 3:50 AM [facility] Urine URINE / Unknown Collection / Unknown 05/16/2020 3:19 AM INTAKE MAN 05/16/2020 3:26 AM INTAKE MAN Narrative [facility] - 05/16/2020 3:50 AM INTAKE MAN This drug screen is designed for MEDICAL purposes only. It is not to be used for legal purposes, including but not limited to worker's comp, police investigations, occupational issues, child custody, etc. Any positive result is only presumptive and must be confirmed with a separate confirmatory test ordered by the physician. Drug Screening Test Cutoff Values: AMPHETAMINES 1000 ng/mL BARBITURATES 200 ng/mL BENZODIAZEPINES 200 ng/mL CANNABINOIDS(THC) 50 ng/mL COCAINE 300 ng/mL FENTANYL 1 ng/mL METHADONE 300 ng/mL OPIATES 300 ng/mL PHENCYCLIDINE(PCP) 25 ng/mL Joanna Esteban RECORD CENTER COORDINATOR-BOILER FIREMAN LAB - URINE CHEMI STRY ORDERABLES [facility] [address] [place] [address] * SYPHILIS ANTIBODY CASCADING REFLEX (05/16/2020 3:17 AM INTAKE MAN) Only the most recent of3 resultswithin the time period is included. Treponema pallidum Antibody Non Reactive Non Reactive 05/16/2020 4:24 AM INTAKE MAN [facility] Comment: No Laboratory evidence of syphilis infection. Note: Circulating antibodies may be low or undetectable in early infection. If recent exposure is suspected, re-draw sample in 2-4 weeks and repeat testing. Blood BLOOD SPECIMEN / Unknown Venipuncture / Unknown 05/16/2020 3:17 AM INTAKE MAN 05/16/2020 3:26 AM INTAKE MAN Joanna Esteban RECORD CENTER COORDINATOR-BOILER FIREMAN LAB - SEROLOGY OR DERABLES Performing Organization Address [facility] de Phone Number [facility] [address] [place] [id number] * TSH REFLEX FREE T4 (05/16/2020 3:17 AM INTAKE MAN) Only the most recent of2 resultswithin the time period is included. Pathologist [facility] TSH 2.743 0.350 - 4.940 uIU/mL 05/16/2020 4:28 AM INTAKE MAN [facility] Blood BLOOD SPECIMEN / Unknown Venipuncture / Unknown 05/16/2020 3:17 AM INTAKE MAN 05/16/2020 3:26 AM INTAKE MAN Joanna Esteban [facility] LAB - CHEMISTRY O RDERABLES Performing Organization Address [facility] de Phone Number [facility] [address] [place] [id number] * (ABNORMAL) HEMOGLOBIN A1C (05/16/2020 3:17 AM INTAKE MAN) Only the most recent of4 resultswithin the time period is included. Hemoglobin A1c 10.1(H) 4.2 - 5.6 % 05/16/2020 3:59 AM INTAKE MAN [facility] Estimated Average Glucose 243 mg/dL 05/16/2020 3:59 AM INTAKE MAN [facility] Blood BLOOD SPECIMEN / Unknown Venipuncture / Unknown 05/16/2020 3:17 AM INTAKE MAN 05/16/2020 3:26 AM INTAKE MAN Narrative [facility] - 05/16/2020 3:59 AM INTAKE MAN The following cutoff levels are recommended by [place] [employer]. A1c > 6.5% : considered as diabetes if two separate tests >6.5% or in an appropriate clinical setting. A1c 5.7% - 6.4% : considered as prediabetes (suggest increased risk for diabetes and cardiovascular disease) Control target level: Should be individualized. < 7 for general (non-) , < 8% less stringent goal, < 6.5 more stringent goal. Hemoglobin A1c measurements are used as an aid in the diagnosis of diabetic mellitus, as an aid to identify patients who may be at the risk for developing diabetic mellitus, and for the monitoring long-term blood glucose control in individuals with diabetes mellitus. This test should not replace glucose testing for patients with Type 1 diabetes, pediatric patients, or women. Falsely low HbA1c results may be observed in patients with clinical conditions that shorten erythrocyte life span or decrease mean erythrocyte age such as the presence of unstable hemoglobin variants, elevated hemoglobin F level or other causes of hemolytic anemia . HbA1c may not accurately reflect glycemic control when clinical conditions that affect erythrocyte survival are present. Severe Iron deficiency anemia may yield falsely high results. Hemoglobin A1c assay should not be used to diagnose or monitor diabetes in patients with malignancy, recent blood transfusion, chronic kidney or liver disease. This method may yield falsely low results when hemoglobin (HbF) exceeds 5% in the specimen. Joanna Esteban RECORD CENTER COORDINATOR-BOILER FIREMAN LAB - CHEMISTRY O RDERABLES [facility] [address] [place] [address] * (ABNORMAL) LIPID PROFILE (05/16/2020 3:17 AM INTAKE MAN) Only the most recent of4 resultswithin the time period is included. Pathologist [facility] Cholesterol 132 <200 mg/dL 05/16/2020 4:05 AM [facility] Triglycerides 280(H) <150 mg/dL 05/16/2020 4:05 AM [facility] HDL Cholesterol 35(L) >40 mg/dL 0 4:05 AM [facility] LDL Calculated 41 <130 mg/dL 05/16/2020 4:05 AM [facility] VLDL Calculated 56(H) <=30 mg/dL 0 4:05 AM INTAKE MAN [facility] Chol HDL Ratio 3.8 <4.5 05/16/2020 4:05 AM INTAKE MAN [facility] LDL/HDL Ratio 1.2 <5.0 05/16/2020 4:05 AM INTAKE MAN [facility] Blood BLOOD SPECIMEN / Unknown Venipuncture / Unknown 05/16/2020 3:17 AM INTAKE MAN 05/16/2020 3:26 AM INTAKE MAN Joanna Roca Carlito RECORD CENTER COORDINATOR-BOILER FIREMAN LAB - CHEMISTRY O RDERABLES Performing Organization Address City/[facility]/ZIP Co de Phone Number [facility] [address] [place] [address] * URINE MICROSCOPIC ONLY REFLEX TO CULTURE (02/20/2020 7:56 AM CDT) Only the most recent of2 resultswithin the time period is included. Reflex Status Culture not indicated 02/20/2020 8:[address] [facility] RBC UA None Seen None Seen, 0-2, 3-5 # /hpf 02/20/2020 8:[address] [facility] WBC UA 0-5 None Seen, 0-5 # /hpf 02/20/2020 8:[address] [facility] Bacteria UA None Seen None Seen 02/20/2020 8:[address] [facility] Squamous Epithelial Cells 0-2 None Seen, 0-2, 3-5 /hpf 02/20/2020 8:[address] [facility] Mucus UA 4+ /LPF 02/20/2020 8:[address] [facility] Urine URINE SPECIMEN OBTAINED BY CLEAN CATCH PROCEDURE / Unknown Collection / Unknown 02/20/2020 7:56 AM CDT 02/20/2020 8:[address] [facility] - 02/20/2020 8:35 AM CDT Bridget Robins MD LAB - URINALYSIS ORDERABLES [facility] [address] [place] [address] * (ABNORMAL) BASIC METABOLIC PANEL (CALCIUM TOTAL) (10/09/2019 4:20 PM CDT) Glucose 131(H) 70 - 105 mg/dL 10/09/2019 4:56 PM CDT [facility] Sodium 140 136 - 145 mmol/L 10/09/2019 4:56 PM CDT [facility] Potassium 4.0 3.5 - 5.1 mmol/L 10/09/2019 4:56 PM CDT [facility] Chloride 105 98 - 107 mmol/L 10/09/2019 4:56 PM CDT [facility] CO2 22(L) 23 - 31 mmol/L 10/09/2019 4:56 PM CDT [facility] Calcium 9.2 8.4 - 10.4 mg/dL 10/09/2019 4:56 PM CDT [facility] Anion Gap 13 8 - 16 mmol/L 10/09/2019 4:56 PM CDT [facility] BUN 10 8.9 - 20.6 mg/dL 10/09/2019 4:56 PM CDT [facility] Creatinine 0.85 0.72 - 1.25 mg/dL 10/09/2019 4:56 PM CDT [facility] eGFR by MDRD >60 >60 mL/min/1.7 3m2 10/09/2019 4:56 PM CDT [facility] eGFR by MDRD >60 >60 mL/min/1.7 3m2 10/09/2019 4:56 PM CDT [facility] Blood BLOOD SPECIMEN / Unknown Venipuncture / Unknown 10/09/2019 4:20 PM CDT 10/09/2019 4:29 PM CDT Eduardo Underwood MD LAB - CHEMISTRY ORD ERABLES [facility] [address] [place] [address] * DRUG SCREEN URINE (09/28/2019 12:24 AM CDT) Cannabinoids Screen Urine Not detected Not detected 09/28/2019 1:09 AM CDT [facility] Phencyclidine Screen Urine Not detected Not detected 09/28/2019 1:09 AM CDT [facility] Cocaine Screen Urine Not detected Not detected 09/28/2019 1:09 AM CDT [facility] Methamphetamine Screen Urine Not detected Not detected 09/28/2019 1:09 AM T [facility] Opiate Screen Urine Not detected Not detected 09/28/2019 1:09 AM [facility] Amphetamines Screen Urine Not detected Not detected 09/28/2019 1:09 AM [facility] Benzodiazepines Screen Urine Not detected Not detected 09/28/2019 1:09 AM [facility] Tricyclics Screen Urine Not Detected Not Detected 09/28/2019 1:09 AM [facility] Methadone Screen Urine Not detected Not detected 09/28/2019 1:09 AM T [facility] Barbiturates Screen Urine Not detected Not detected 09/28/2019 1:09 AM [facility] Oxycodone Screen Urine Not detected Not detected 09/28/2019 1:09 AM [facility] Propoxyphene Screen Urine Not detected Not detected 09/28/2019 1:09 AM [facility] Urine URINE / Unknown Collection / Unknown 09/28/2019 12:24 AM CDT 09/28/2019 12:30 AM [facility] - 09/28/2019 1:09 AM [facility] This drug screen is designed for MEDICAL purposes only. It is not to be used for legal purposes, including but not limited to worker's compensation, police investigations, occupational issues, child custody, etc. Any positive result is only presumptive and must be confirmed with a separate confirmatory test ordered by the physician. Drug Screening Test Cutoff Values: AMPHETAMINES 500 ng/mL BARBITURATES 200 ng/mL BENZODIAZEPINES 150 ng/mL CANNABINOIDS(THC) 50 ng/mL COCAINE 150 ng/mL METHADONE 200 ng/mL METHAMPHETAMINE 500 ng/mL OPIATES 2000 ng/mL OXYCODONE 100 ng/mL PHENCYCLIDINE(PCP)25 ng/mL PROPOXYPHENE 300 ng/mL TRICYCLICS 300 ng/mL Shadi Magana MD LAB - URINE CHEMISTR Y ORDERABLES [facility] [address] [place], [place] [address] [phone] * ALCOHOL ETHYL BLOOD (08/02/2019 12:57 PM INTAKE MAN) Ethanol <10.0 <10 mg/dL 08/02/2019 1:[address] [facility] Ethanol Calculated <0.010 <=0.100 gm/dL 08/02/2019 1:[address] [facility] Blood BLOOD SPECIMEN / Unknown Venipuncture / Unknown 08/02/2019 12:57 PM INTAKE MAN 08/02/2019 1:[address] MAN [address] [facility] - 08/02/2019 1:45 PM INTAKE MAN Non Legal Serum Alcohol Zeferino Benson MD LAB - CHEMISTRY ORDERABLES [facility] [address] [place] [address] * TSH (11/12/2018 7:49 AM CDT) Only the most recent of3 resultswithin the time period is included. Pathologist [facility] TSH 0.9317 0.358 - 3.74 uIU/mL 11/12/2018 12:28 PM CDT [facility] Blood BLOOD SPECIMEN / Unknown Lab Venipuncture / Unknown 11/12/2018 7:49 AM CDT 11/12/2018 8:51 AM CDT Mikel Patel MD LAB - CHEMISTRY [facility] [address] [place] [address] * RPR (09/27/2016 5:11 AM CDT) Only the most recent of2 resultswithin the time period is included. Pathologist [facility] RPR Non Reactive Non Reactive 09/28/2016 10:21 AM CDT [facility] Blood BLOOD SPECIMEN / Unknown 09/27/2016 5:11 AM CDT 09/27/2016 5:14 AM CDT Timothy Chase MD LAB - CHEMISTRY NISH SWENSON [facility] [address] [place] [address] * (ABNORMAL) DRUG SCREEN TOX LIMITED BLD PNL 3 INHOUSE (10/06/2015 2:58 PM CDT) Only the most recent of2 resultswithin the time period is included. Acetaminophen <2.0(L) 10.0 - 30.0 ug/mL 10/06/2015 3:32 PM CDT [facility] Ethanol <3 <10 mg/dL 10/06/2015 3:32 PM CDT [facility] Salicylate <1.7 <20.0 mg/dL 10/06/2015 3:32 PM CDT [facility] Blood BLOOD SPECIMEN / Unknown 10/06/2015 2:58 PM CDT 10/06/2015 3:13 PM CDT Narrative [facility] - 10/06/2015 3:32 PM CDT [facility] ACETAMINOPHEN COMMENT Critical values: 4 Hours Post Ingestion: Critical value > 200 g/mL 12 Hours Post Ingestion: Critical value > 50 g/mL For acute ingestion, please refer to Acetaminophen nomogram to determine the risk of toxicity based on time since ingestion and acetaminophen level (see link provided). Note the nomogram disclaimer. WARNING: Assessing the potential toxicity of an acetaminophen level on a standard risk nomogram must take into consideration many factors including any uncertainty of the time since ingestion or the possibility of other medications that may alter the peak level. Contact the [facility] at or reserved for healthcare professionals to assist you in evaluating potentially toxic acetaminophen levels. Ray Longo RECORD CENTER COORDINATOR-DESIGN SPECIALIST LAB - CHEMISTRY ORDERABLES [facility] [address] [place] [address] * VALPROIC ACID LEVEL (07/01/2015 11:23 PM INTAKE MAN) Valproic Acid 93.8 50 - 100 ug/mL 07/01/2015 11:51 PM INTAKE MAN [facility] Blood BLOOD SPECIMEN / Unknown 07/01/2015 11:23 PM INTAKE MAN 07/01/2015 11:27 PM INTAKE MAN Timothy Chase MD LAB - CHEMISTRY ORDE RABWENDY Performing Organization Address [facility] Co de Phone Number [facility] [address] [place] [address] * (ABNORMAL) URINALYSIS MICROSCOPIC ONLY (06/25/2015 6:12 AM INTAKE MAN) Epithelial Cell UA 0-2 0-2, 2-5 # /hpf 06/25/2015 6:34 AM INTAKE MAN [facility] Mucus UA 2+ 06/25/2015 6:34 AM INTAKE MAN [facility] Hyaline Casts 10-20(A) 0 - 2 # /lpf 06/25/2015 6:34 AM INTAKE MAN [facility] Granular Casts 2-5(A) None Seen # /lpf 06/25/2015 6:34 AM INTAKE MAN [facility] Urine URINE SPECIMEN OBTAINED BY CLEAN CATCH PROCEDURE / Unknown 06/25/2015 6:12 AM INTAKE MAN 06/25/2015 6:14 AM INTAKE MAN Foster Fields MD LAB - URINALYSIS ORD ERABLES Performing Organization Address [facility] Co de Phone Number [facility] [address] [place] [address] Care Teams Oil Spot Washer Relationship Specialty Start Date End Date Farideh Payne MD PCP - General 08/12/19
--- OUTSIDE RECORDS SUMMARY | 2024-08-13 20:35 | XMS_ITS | Referral Summary ---
Author Organization [facility] Address [address] [place] [address] Care Team Providers Care Bow Machine Operator Name Role Phone Farideh Payne MD Primary Care Provider [phone] Source Comments [facility],non-owned Affiliates and Associated Physician Practices is amultiple site organization consisting of ambulatory clinics and hospital sitesin [place], [place], [place] and [place]. This disclosure is being madepursuant to the Care Everywhere program and may not contain all information available regarding this patient. Last updated 18.[facility] Encounters Date Type Department Care Team Description 07/11/2024 Travel 07/11/2024 5:39 PM [facility] - 07/11/2024 8:50 PM [facility] Emergency [facility] [address] [place] [phone] Edilma Kyle MD Penile pain (Primary Dx); Abdominal pain, right lower quadrant Discharge Disposition: Home or Self Care 07/08/2024 8:55 AM [facility] - 07/08/2024 9:45 AM [facility] Emergency [facility] [address] [place] [phone] Pastor Vallejo MD Gastroesophageal reflux disease, unspecified whether esophagitis present (Primary Dx); Other chest pain Discharge Disposition: Home or Self Care 07/07/2024 Travel from Last 3 Months Allergies No known active allergies Medications * Be aware that medications may not be up to date on this document. Alwaysverify current medications with the patient. 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 60 tablet 1 05/22/2020 Active atorvastatin (Lipitor) 20 MG tablet Take 0.5 (one-half) tablet by mouth once daily 06/28/2023 Active gabapentin (Neurontin) 300 MG capsule TAKE 1 Capsule BY MOUTH EVERY DAY IN THE EVENING 08/24/2023 Active paliperidone CR 24hr (Invega) 9 MG tablet 06/27/2023 Acti ve pantoprazole EC (Protonix) 40 MG tablet Take 1 (one) tablet by mouth once daily 08/24/2023 Active Semaglutide (2 MG/DOSE) 8 MG/3ML Subcutaneous Solution Pen-injector (Ozempic) Inject 2 (two) mg subcutaneously every 7 days 05/07/2023 Active metFORMIN (Glucophage) 1000 MG tablet Take 1 (one) tablet by mouth 2 times daily 06/01/2023 Active ondansetron, disintegrating, (Zofran ODT) 4 MG tablet Take 1 (one) tablet by mouth every 6 hours as needed for Nausea/Vomiting Allow tablet to dissolve on the tongue 4 tablet 04/18/2024 Active pantoprazole EC (Protonix) 40 MG tablet Take 1 (one) tablet by mouth once daily 30 tablet 07/08/2024 Active acetaminophen (Tylenol) 325 MG tablet Take 2 (two) tablets by mouth every 6 hours as needed for Fever or Pain Maximum allowable Acetaminophen amount = 4 Grams (4000 mg) / 24 hours. 60 tablet 07/11/2024 Active Active Problems Problem Noted Date Diagnosed Date Malingering 02/20/2020 Gynecomastia 11/28/2019 Schizophrenia 08/03/2019 Paranoid schizophrenia 11/11/2018 Immunizations Name Administration Dates Next Due INFLUENZA VACCINE, QUADR. (F LUZONE; FLULAVAL; FLUARIX; AFLURIA QUADRIVALENT; 6MO+), 0.5 ML (IIV4) 08/04/2019(Deferred: Patient Refused) Social History Tobacco Use Types Packs/Day Years [...] Comments Blood Pressure 114/85 07/11/2024 5:39 PM PUBLIC HEALTH SERVICE OFFICER Pulse 58 07/11/2024 5:39 PM PUBLIC HEALTH SERVICE OFFICER Temperature 36.3 C (97.4 F) 07/11/2024 5:39 PM PUBLIC HEALTH SERVICE OFFICER Respiratory Rate 18 07/11/2024 5:39 PM PUBLIC HEALTH SERVICE OFFICER Oxygen Saturation 100% 07/11/2024 5:39 PM PUBLIC HEALTH SERVICE OFFICER Inhaled Oxygen Concentration - - Weight 98.4 kg (217 lb) 07/11/2024 12:55 PM PUBLIC HEALTH SERVICE OFFICER Height 175.3 cm (5' 9 ) 07/11/2024 12:55 PM PUBLIC HEALTH SERVICE OFFICER Body Mass Index 32.05 07/11/2024 12:55 PM PUBLIC HEALTH SERVICE OFFICER Functional Status Functional Status Response Date of Assess ment Is person deaf or have serious hearing difficult y? No 09/28/2019 Is person blind or have serious difficulty seein g? No 09/28/2019 Does person have serious dif ficulty walking/climbing stairs? No 09/28/2019 Does person have difficulty dressing/bathing? No 09/28/2019 Does person have difficulty doing errands alone? No 09/28/2019 Cognitive Status Response Date of Assessm ent Does person have difficulty concentrating/remembering/making decisions? No 09/28/2019 Plan of Treatment Not on file Procedures Procedure Name Priority Date/Time Associated Diagnosis Comments URINALYSIS REFLEX MICROSCOPIC REFLEX CULTURE STAT 07/11/2024 7:27 PM PUBLIC HEALTH SERVICE OFFICER CHLAMYDIA + GC AMPLIFIED PROBE STAT 07/11/2024 7:27 PM PUBLIC HEALTH SERVICE OFFICER CARDIAC EKG ORDER 07/11/2024 11: 29 AM PUBLIC HEALTH SERVICE OFFICER EKG 12-LEAD STAT 07/07/2024 8:39 PM PUBLIC HEALTH SERVICE OFFICER Other chest pain TROPONIN-I HIGH SENSITIVE BASELINE + 1HR STAT 07/07/2024 8:31 PM PUBLIC HEALTH SERVICE OFFICER MAGNESIUM BLOOD STAT 07/07/2024 8:31 PM PUBLIC HEALTH SERVICE OFFICER COMPREHENSIVE METABOLIC PANEL STAT 07/07/2024 8:31 PM PUBLIC HEALTH SERVICE OFFICER CBC W AUTO DIFFERENTIAL STAT 07/07/2024 8:31 PM PUBLIC HEALTH SERVICE OFFICER XR CHEST 2VW STAT 07/07/2024 8:21 PM PUBLIC HEALTH SERVICE OFFICER Other chest pain from Last 3 Months Results * CHLAMYDIA + GC AMPLIFIED PROBE (07/11/2024 7:27 PM PUBLIC HEALTH SERVICE OFFICER) Chlamydia Amplified Probe Negative Negative 07/12/2024 6:42 AM PUBLIC HEALTH SERVICE OFFICER [facility]CRO[facility]OLOG[facility] GC Amplified Probe Negative Negative 07/12/2024 6:42 AM PUBLIC HEALTH SERVICE OFFICER [facility]CRO[facility]Y Microbiology URINE / Unknown Collection / Unknown 07/11/2024 7:27 PM PUBLIC HEALTH SERVICE OFFICER 07/11/2024 7:30 PM PUBLIC HEALTH SERVICE OFFICER Narrative [facility]CROBIOLOG[facility] - 07/12/2024 6:42 AM PUBLIC HEALTH SERVICE OFFICER Results based on detection/no detection of ribosomal RNA by amplified method. Edilma Kyle MD LAB - MICROBIOLOGY O RDERABLES [facility] MICROBIOLOG[facility] [address] [place] [address], [facility] [phone] * (ABNORMAL) URINALYSIS REFLEX MICROSCOPIC REFLEX CULTURE (07/11/2024 7:27 PM PUBLIC HEALTH SERVICE OFFICER) Color UA Straw Straw, Yellow 07/11/2024 7:38 PM [facility] Clarity UA Clear Clear 07/11/2024 7:38 PM [facility] Specific [place] UA 1.007 1.005 - 1.030 07/11/2024 7:38 PM [facility] pH UA 6.0 5.0 - 8.0 pH 07/11/2024 7:38 PM [facility] Protein UA Negative Negative 07/11/2024 7:38 PM [facility] Glucose UA 3+(A) Negative 07/11/2024 7:38 PM [facility] Ketone UA Negative Negative 07/11/2024 7:38 PM [facility] Bilirubin UA Negative Negative 07/11/2024 7:38 PM [facility] Blood UA Negative Negative 07/11/2024 7:38 PM [facility] Nitrite UA Negative Negative 07/11/2024 7:38 PM PUBLIC HEALTH SERVICE OFFICER [facility] Leukocyte Esterase Negative Negative 07/11/2024 7:38 PM PUBLIC HEALTH SERVICE OFFICER [facility] Urobilinogen UA Negative Negative mg/dL 07/11/2024 7:38 PM PUBLIC HEALTH SERVICE OFFICER [facility] Comment UA Microscopic not indicated. 07/11/2024 7:38 PM PUBLIC HEALTH SERVICE OFFICER [facility] Urine URINE SPECIMEN OBTAINED BY CLEAN CATCH PROCEDURE / Unknown Collection / Unknown 07/11/2024 7:27 PM PUBLIC HEALTH SERVICE OFFICER 07/11/2024 7:30 PM PUBLIC HEALTH SERVICE OFFICER Narrative [facility] - 07/11/2024 7:38 PM PUBLIC HEALTH SERVICE OFFICER Edilma Kyle MD LAB - URINALYSIS ORD ERABLES Performing Organization Address City/[facility]/ZIP Co de Phone Number [facility] [address] [place] [phone], [facility] [phone] * CARDIAC EKG ORDER (07/11/2024 11:29 AM PUBLIC HEALTH SERVICE OFFICER) Narrative 07/11/2024 11:29 AM PUBLIC HEALTH SERVICE OFFICER Ordered by an unspecified provider. Scanned Document CARDIAC SERVICES ORD ERABLES * EKG 12-LEAD (07/07/2024 8:39 PM PUBLIC HEALTH SERVICE OFFICER) Pathologist [facility] Ventricular Rate 60 BPM [facility] Atrial Rate 60 BPM [facility] P-R Interval 186 ms [facility] QRS Duration ms 84 ms [facility] Q-T Interval ms 384 ms [facility] QTC Calculation (Bezet) 384 ms [facility] Calculated P [place] 70 degrees [facility] Calculated R [place] 45 degrees [facility] Calculated T [place] 27 degrees [facility] Interpretation EKG NORMAL SINUS RHYTHM NORMAL ECG WHEN COMPARED WITH ECG OF 12-JAN-2024 14:08, CRITERIA FOR INFERIOR INFARCT ARE NO LONGER PRESENT Confirmed by VERONICA ALVAREZ MD ([id number]) on 07/12/2024 8:53:31 PM [facility] 07/07/2024 8:39 PM PUBLIC HEALTH SERVICE OFFICER 07/12/2024 8:53 PM PUBLIC HEALTH SERVICE OFFICER Pastor Huff MD ECG ORDERABLES [facility] * TROPONIN-I HIGH SENSITIVE BASELINE + 1HR (07/07/2024 8:31 PM PUBLIC HEALTH SERVICE OFFICER) Pathologist [facility] Troponin I High Sensitive <3 <=35 ng/L 07/07/2024 11:58 PM [facility] Blood BLOOD SPECIMEN / Unknown Venipuncture / Unknown 07/07/2024 8:31 PM PUBLIC HEALTH SERVICE OFFICER 07/07/2024 9:11 PM [employer] HE[employer] SERVICE OFFICER Vania Juárez APRN-GAS REGULATOR REPAIRER HELPER LAB - SPEED BELT SANDER TENDER RY ORDERABLES [facility] [address] [place] [address], [facility] [phone] * CBC W AUTO DIFFERENTIAL (07/07/2024 8:31 PM PUBLIC HEALTH SERVICE OFFICER) Pathologist [facility] WBC 9.2 4.0 - 10.7 x10E9/L 07/07/2024 9:14 PM [facility] RBC Count 4.83 4.30 - 5.80 x10E12/L 07/07/2024 9:14 PM [facility] Hemoglobin 13.3 13.3 - 17.5 g/dL 07/07/2024 9:14 PM [facility] Hematocrit 39.8 38.7 - 51.1 % 07/07/2024 9:14 PM [facility] MCV 82.4 80.0 - 98.0 fL 07/07/2024 9:14 PM [facility] MCH 27.5 26.7 - 33.6 pg 07/07/2024 9:14 PM [facility] MCHC 33.4 31.7 - 36.3 g/dL 07/07/2024 9:14 PM [facility] RDW-CV 13.5 11.3 - 14.8 % 07/07/2024 9:14 PM [facility] Platelet Count 209 150 - 420 x10E9/L 07/07/2024 9:14 PM [facility] MPV 9.9 7.8 - 11.4 fL 07/07/2024 9:14 PM [facility] Neutrophil % 66.0 41.0 - 74.0 % 07/07/2024 9:14 PM [facility] Lymphocyte % 26.0 17.0 - 47.0 % 07/07/2024 9:14 PM [facility] Monocyte % 6.4 3.0 - 11.0 % 07/07/2024 9:14 PM [facility] Eosinophil % 1.1 0.0 - 7.0 % 07/07/2024 9:14 PM [facility] Basophil % 0.2 0.0 - 1.6 % 07/07/2024 9:14 PM [facility] Immature Granulocytes % 0.3 0.0 - 1.0 % 07/07/2024 9:14 PM [facility] Neutrophil Absolute 6.08 1.60 - 7.50 x10E9/L 07/07/2024 9:14 PM [facility] Lymphocyte Absolute 2.39 1.00 - 4.40 x10E9/L 07/07/2024 9:14 PM [facility] Monocyte Absolute 0.59 0.15 - 1.00 x10E9/L 07/07/2024 9:14 PM [facility] Eosinophil Absolute 0.10 0.00 - 0.60 x10E9/L 07/07/2024 9:14 PM [facility] Basophil Absolute 0.02 0.00 - 0.13 x10E9/L 07/07/2024 9:14 PM [facility] Blood BLOOD SPECIMEN / Unknown Venipuncture / Unknown 07/07/2024 8:31 PM PUBLIC HEALTH SERVICE OFFICER 07/07/2024 9:11 PM [facility] Vania Juárez ICT BUSINESS ANALYST-GAS REGULATOR REPAIRER HELPER LAB - HEMATOL OGY ORDERABLES [facility] [address] [place] [phone], [facility] [phone] * (ABNORMAL) COMPREHENSIVE METABOLIC PANEL (07/07/2024 8:31 PM PUBLIC HEALTH SERVICE OFFICER) BUN 9 7 - 26 mg/dL 07/08/2024 12:10 AM [facility] Creatinine 0.77 0.71 - 1.16 mg/dL 07/08/2024 12:10 AM [facility] Sodium 140 136 - 145 mmol/L 07/08/2024 12:10 AM [facility] Potassium 3.8 3.5 - 4.5 mmol/L 07/08/2024 12:10 AM [facility] Chloride 109(H) 98 - 107 mmol/L 07/08/2024 12:10 AM [facility] CO2 19(L) 22 - 29 mmol/L 07/08/2024 12:10 AM [facility] Glucose 185(H) 70 - 99 mg/dL 07/08/2024 12:10 AM [facility] Calcium 9.3 8.4 - 10.2 mg/dL 07/08/2024 12:10 AM [facility] Protein Total 6.8 6.0 - 8.3 g/dL 07/08/2024 12:10 AM [facility] Albumin 3.9 3.4 - 5.0 g/dL 07/08/2024 12:10 AM [facility] Bilirubin Total 0.3 0.2 - 1.2 mg/dL 07/08/2024 12:10 AM [facility] Alkaline Phosphatase 113 40 - 150 U/L 07/08/2024 12:10 AM [facility] ALT 42 5 - 55 U/L 07/08/2024 12:10 AM [facility] AST 28 5 - 34 U/L 07/08/2024 12:10 AM [facility] Anion Gap 12 6 - 16 07/08/2024 12:10 AM [facility] BUN/Creatinine Ratio 12 7 - 23 07/08/2024 12:10 AM [facility] Osmolality Calculated 293 275 - 295 mOsm/kg 07/08/2024 12:10 AM [facility] Albumin/Globulin Ratio 1.3 1.1 - 2.3 07/08/2024 12:10 AM [facility] eGFR by CKD-EPI >90 >=90 mL/min/1.7 3 m2 07/08/2024 12:10 AM [facility] Blood BLOOD SPECIMEN / Unknown Venipuncture / Unknown 07/07/2024 8:31 PM PUBLIC HEALTH SERVICE OFFICER 07/07/2024 9:11 PM PUBLIC HEALTH SERVICE OFFICER Vania Juárez ICT BUSINESS ANALYST-GAS REGULATOR REPAIRER HELPER LAB - SPEED BELT SANDER TENDER RY ORDERABLES Performing Organization Address City/[facility]/ZIP Co de Phone Number [address] [phone], [facility] [phone] * MAGNESIUM BLOOD (07/07/2024 8:31 PM PUBLIC HEALTH SERVICE OFFICER) Magnesium 1.9 1.6 - 2.6 mg/dL 07/07/2024 11:58 PM PUBLIC HEALTH SERVICE OFFICER [facility] Blood BLOOD SPECIMEN / Unknown Venipuncture / Unknown 07/07/2024 8:31 PM PUBLIC HEALTH SERVICE OFFICER 07/07/2024 9:11 PM PUBLIC HEALTH SERVICE OFFICER Vania Juárez ICT BUSINESS ANALYST-GAS REGULATOR REPAIRER HELPER LAB - SPEED BELT SANDER TENDER RY ORDERABLES Performing Organization Address [facility] Co de Phone Number [address] [phone], [facility] [phone] * XR CHEST 2VW (07/07/2024 8:21 PM PUBLIC HEALTH SERVICE OFFICER) Anatomical Region Laterality Modality Chest Digital Radiogra phy 07/07/2024 8:55 PM PUBLIC HEALTH SERVICE OFFICER Impressions 07/08/2024 8:46 AM PUBLIC HEALTH SERVICE OFFICER IMPRESSION: No acute pulmonary process. > Dictated by Jackson Sanches DO (Access Analyst), 07/07/2024 8:55 PM. I, Leslye Downs MD have personally reviewed and interpreted this examination/study. > Interpreting Provider: Leslye Downs MD on 07/08/2024 8:46 AM Narrative 07/08/2024 8:46 AM PUBLIC HEALTH SERVICE OFFICER PROCEDURE: XR CHEST 2VW, DATE/TIME OF EXAM: 07/07/2024 8:21 PM, LOCATION [facility] INDICATION: R07.89: Other chest pain ADDITIONAL CLINICAL [...] DATE/TIME OF EXAM: 07/07/2024 8:21 PM, LOCATION [facility] INDICATION: R07.89: Other chest pain ADDITIONAL CLINICAL INFORMATION: Ordering Provider Reason For Exam: chest pain COMPARISON: Chest x-ray 04/18/2024 FINDINGS: There is no focal consolidation, pleural effusion, or pneumothorax. The cardiomediastinal silhouette is normal. The bony thorax is intact. Cholecystectomy clips in the right upper abdominal quadrant. IMPRESSION: No acute pulmonary process. > Dictated by Jackson Sanches DO (Access Analyst), 07/07/2024 8:55 PM. ILeslye MD have personally reviewed and interpreted this examination/study. > Interpreting Provider: Leslye Downs MD on 07/08/2024 8:46 AM Vania Juárez ICT BUSINESS ANALYST-GAS REGULATOR REPAIRER HELPER DIAGNOSTIC IM AGING ORDERABLES from Last 3 Months Advance Directives * Full Code (Latest Code Status on File) Date Activated Date Inactivated Comments 05/16/2020 3:13 AM 05/22/2020 4:47 PM * Full Code Date Activated Date Inactivated Comments 09/28/2019 1:16 PM 10/08/2019 5:06 PM * Full Code Date Activated Date Inactivated Comments 08/03/2019 8:11 PM 08/11/2019 1:56 PM * Full Code Date Activated Date Inactivated Comments 11/11/2018 9:03 PM 11/16/2018 1:10 PM * Full Code Date Activated Date Inactivated Comments 09/27/2016 5:00 AM 10/03/2016 10:51 AM Care Teams Bow Machine Operator Relationship Specialty Start Date End Date Farideh Payne MD PCP - General 08/12/19
--- OUTSIDE RECORDS SUMMARY | 2024-08-13 20:35 | XMS_ITS | Referral Summary ---
Author Organization [facility] [address] Address [facility] [place] [address] Care Team Providers Care Ecommerce Project Manager Name Role Phone Susana Adam MD Primary Care Provider Greta Franco RN Unavailable Unavaila ble Encounters Date Type Department Care Team Description 06/22/2024 Transitional Care Outreach [facility] Care Coordination [address] [place] [address] [phone] Yusra Wiggins RN 06/22/2024 3:50 PM CASH REGISTER BALANCER Office Visit [facility] [address] [place] [address] Susana Adam MD Healthcare maintenance (Primary Dx); Gynecomastia; Anemia, unspecified type; Diabetic peripheral neuropathy associated with type 2 diabetes mellitus (HCC); Type 2 diabetes mellitus without complication, without long-term current use of insulin (HCC); Encounter for vaccination 06/21/2024 4:46 AM CASH REGISTER BALANCER - 06/21/2024 6:56 AM CASH REGISTER BALANCER Emergency [facility] Emergency Department [address] [place] [phone] John Silver MD Acute pain of left shoulder (Primary Dx) Discharge Disposition: Discharge to home or self care 05/23/2024 Transitional Care Outreach [facility] Care Coordination [address] [place] [address] [phone] Yusra Wiggins RN 05/19/2024 11:27 PM CASH REGISTER BALANCER - 05/20/2024 1:33 AM [facility] Emergency [facility] Emergency Department [address] [place] [phone] Abdiaziz Albarado MD Bilateral foot pain (Primary Dx); Peripheral polyneuropathy; Constipation, unspecified constipation type Discharge Disposition: Discharge to home or self care from Last 3 Months Allergies No known active allergies Medications blood-glucose meter misc every 8 hours Activ e polyethylene glycol (MIRALAX) 17 gram/dose bulk powder Take 17 g by mouth daily 595 g 4 Active famotidine (PEPCID) 20 mg tabletIndicatio ns:Heartburn Take 1 tablet (20 mg total) by mouth daily 90 tablet 3 4 01/27/20 25 Active metFORMIN (GLUCOPHAGE) 1,000 mg tabletIndicatio ns:Type 2 diabetes mellitus without complication, without long-term current use of insulin (HCC) Take 1 tablet (1,000 mg total) by mouth 2 (two) times a day with meals 180 tablet 3 4 01/27/20 25 Active paliperidone ER (INVEGA) 9 mg 24 hr tabletIndicatio ns:Schizophreni a Take 1 tablet (9 mg total) by mouth every morning Active pen needle, diabetic (Pen Needle) 31 gauge x 5/16 needleIndicatio ns:Type 2 diabetes mellitus without complication, without long-term current use of insulin (HCC) Use as directed once a day 100 each 11 4 Active atorvastatin (LIPITOR) 40 mg tabletIndicatio ns:Type 2 diabetes mellitus without complication, without long-term current use of insulin (HCC) Take 1 tablet (40 mg total) by mouth daily 90 tablet 3 4 01/27/20 25 Active empagliflozin (JARDIANCE) 10 mg tabletIndicatio ns:type 2 diabetes mellitus Take 1 tablet (10 mg total) by mouth daily 90 tablet 3 4 01/27/20 25 Active lisinopriL (PRINIVIL,ZESTR IL) 2.5 mg tablet Take 1 tablet (2.5 mg total) by mouth daily 90 tablet 4 4 01/27/[address] (PROTONIX) 40 mg EC tabletIndicatio ns:Treatment of Non-Bleeding Gastric Disorder Take 1 tablet (40 mg total) by mouth daily 30 tablet 4 Active blood glucose diagnostic stripIndication s:Please test blood sugar once daily 50 each by other route as directed 50 each 3 4 Active clindamycin (CLEOCIN T) 1 % gel Apply topically 2 (two) times a day 30 g 4 Active gabapentin (NEURONTIN) 300 mg capsuleIndicati ons:Type 2 diabetes mellitus without complication, without long-term current use of insulin (HCC) TAKE 1 Capsule BY MOUTH EVERY DAY IN THE EVENING 30 capsule 1 4 Active lancets (JoinTVuch Delica Plus Lancet) 33 gauge misc USE TO TEST BLOOD SUGAR DIRECTED. 100 each 3 5 Active ibuprofen (ADVIL,MOTRIN) 600 mg tablet Take 1 tablet (600 mg total) by mouth every 6 (six) hours as needed for pain 28 tablet 5 Active acetaminophen (TYLENOL) 500 mg tablet Take 1-2 tablets (500-1,000 mg total) by mouth every 6 (six) hours as needed for pain (1 tablet for mild to moderate pain. 2 tablets for severe pain) 30 tablet 5 Active tirzepatide (Mounjaro) 12.5 mg/0.5 mL pen injectorIndicat ions:Type 2 diabetes mellitus without complication, without long-term current use of insulin (HCC) Inject 12.5 mg under the skin every 7 days 0.5 mL 11 5 07/22/19 25 Active Problems Problem Noted Date Diagnosed Date Anemia 06/24/2024 Overview (06/24/2024): Hgb 12, normocytic, per recent ED labs. Patient denies any bleeding today, no melena/hematochezia. 2022 C-scope with nonbleeding internal hemorrhoids. - Repeat CBC, iron panel, ferritin, b12, folate Diabetic peripheral neuropat hy associated with type 2 diabetes mellitus 02/26/2024 Gastroesophageal reflux disease 01/31/2024 Assessment & Plan (01/31/2024 2:42 PM CDT): Weekly heartburn and waking up with acidic taste in mouth despite pantoprazole 40 mg daily and pepcid 20 mg daily. Has been taking pantoprazole incorrectly with meals or after meals. Reports having 2 episodes of melena and diffuse abdominal pain. Denies NSAID use. Plan: - Increase pantoprazole 40 mg daily -> 40 mg BID. Counseled patient to take 30- 60 minutes PRIOR to meals. - Continue pepcid 20 mg daily - Referred for EGD, follow up on scheduling next visit - Counseled patient to avoid NSAIDs. Tinnitus of right ear 01/31/2024 Assessment & Plan (01/31/2024 2:44 PM CDT): - Referred to ENT. Melena 01/27/2024 Assessment & Plan (01/31/2024 2:42 PM CDT): 2 episodes of melena and 2 episodes of BRBPR on toilet paper after wiping. Also reports 2 episodes of diffuse abdominal pain prior to eating that got better with eating and with BMs. Has been having mushy and runny stools. 05/2023 C-scope with non-bleeding internal hemorrhoids and otherwise normal. Has weekly heartburn despite daily pantoprazole 40 mg daily and pepcid 20 mg daily. However has been taking pantoprazole incorrectly with meals or after meals. Denies NSAID use. Plan: - Increase pantoprazole 40 mg daily -> 40 mg BID. Counseled patient to take 30- 60 minutes prior to meals. - Continue pepcid 20 mg daily - Referred for EGD, follow up scheduling next visit - Check CBC Healthcare maintenance 11/24/2022 Overview (06/24/2024): Health Maintenance - A1c (for pts c BP >135/80): 01/27/2024 10.1 - Lipids (men >35): 01/27/2024 LDL 43 Cancer - Colonoscopy (age 45-75): 05/2023 colonoscopy with non-bleeding internal hemorrhoids and otherwise normal exam, next due 2032 - Prostate ca screening: revisit at future visit - Lung (55-80 c >30 pk-yr hx, and smoking in past 15yrs): NA Infectious Disease - HIV (age 15-65): NR 11/22/21 - HBV (if at high risk): ordered - HCV ( [id number]): NR 11/22/21 - Gonorrhea/Chlamydia (<24 or increased risk): No concerns - Syphilis (if increased risk): No concerns Immunizations - Influenza (annually): 04/01/23, 06/22/24 - Td/Tdap (q10 years): 11/24/22, next due 2032 - PCV20: 01/27/2024 - HAV (MSM or chronic liver disease): 05/25/2002, 06/12/2021 - HBV: pending serologies - Covid: Pfizer x2 2020, booster 04/01/23, can't give after 4:30 in clinic so will obtain at pharmacy - RSV: @60 given T2DM Immature cataract of both eyes 06/27/2022 Assessment & Plan (06/27/2022 9:27 AM CASH REGISTER BALANCER): SRx offered. Mixed hyperlipidemia 05/23/2022 Class 1 obesity without seri ous comorbidity with body mass index (BMI) of 30.0 to 30.9 in adult 05/23/2022 Elevated BP without diagnosis of hypertension Type 2 diabetes mellitus wit hout complication, without long-term current use of insulin 08/12/2019 Overview (06/24/2024): Diabetes Summary: Diagnostic Workup: normal range C-peptide - Hgb A1c: POC Hgb A1c 10.1 in 01/2024 --> 8.4 today - Regimen: Currently on metformin 1000 mg BID and jardiance 10 mg daily, mounjaro 10mg weekly; will uptitrate mounjaro today to 12.5mg - BP: goal BP <130/<80, at goal - Micral/Cr: <4 02/2024 Lab Results Component Value Date ALBCREATRATU 4 06/22/2024 ALBCREATRATU <4 02/24/2024 MICROALBUR <7.0 12/19/2022 MICROALBUR <7.0 03/29/2021 - ACEi/ARB: CTN lisinopril 2.5 mg daily - SGLT-2 Inhibitor: CTN jardiance 10 mg daily - Anti-platelet therapy: None - Statin Therapy: CTN atorvastatin 40 mg daily Lab Results Component Value Date CHOL 100 01/27/2024 CHOL 76 10/21/2022 CHOL 130 07/19/2021 LDLCALC 43 01/27/2024 LDLCALC 25 10/21/2022 LDLCALC 62 02/05/2020 TRIG 178 (H) 01/27/2024 TRIG 118 10/21/2022 TRIG 107 07/19/2021 HDL 27 (L) 01/27/2024 HDL 27 (L) 10/21/2022 HDL 24 (L) 02/05/2020 - ASCVD risk score: The ASCVD Risk score (Ricky DK, et al., 2019) failed to calculate for the following reasons: The valid total cholesterol range is 130 to 320 mg/dL - Smoking status: former smoker? - Diabetic Foot Exam: 04/01/2023 monofilament exam 5/5 bilaterally, 5/5 b/l today - Neuropathy: continue gabapentin 300 mg daily - Ophthalmology Exam: last 06/2022 with no retinopathy, referred to ophthalmology - Dietary Counseling / ancillary support: consider conservation educator next visit Plan: -Increase Mounjaro to 12.5mg qweek with uptitration every 4 weeks -CTN Metformin 1000mg BID, Jiardiance 10mg daily Assessment & Plan (06/27/2022 9:26 AM CASH REGISTER BALANCER): No diabetic retinopathy on dilated eye exam today. Continue strict BS control, annual dilated eye exams. Gynecomastia 08/12/2019 Overview (11/24/2022): Prev surgery in [place] for gynecomastia in 2012. Workup at that time unremarkable. No changes in breast size, pain, or discharge. - Referral to plastics today Schizophrenia 11/11/2018 Assessment & Plan (01/31/2024 2:45 PM CDT): Follows with [facility] Behavioral Health Dr. Dinh. Takes paliperidone 9 mg daily. Plan: - Continue to follow up with Psychiatrist - Management per psychiatry - Discontinued /old medications off medication list Assessment & Plan (01/02/2021 9:01 AM CDT): Patient has documented history of schizophrenia. Patient followed by [facility], and receives VELASCO. His last administration is 12/11, and he has an upcoming appointment next week for his next injection. Patient on exam with no evidence of positive symptoms. Patient appears to have controlled schizophrenia that is appropriate for continued outpatient management. Assessment & Plan (09/17/2020 10:17 AM CDT): No evidence of breakthrough psychotic or depressive/manic symptoms. Negative for SI/HI or AVH. No changes in diagnostic formulation at this time. - Continue monthly Invega injection Assessment & Plan (06/12/2020 1:45 PM CASH REGISTER BALANCER): Mr. Schmidt is a 44 yo , domiciled, employed male with history of schizophrenia characterized by auditory hallucinations (described to be family members or friends in addition to famous people and fictional characters), paranoia, ideas of reference, and negative symptoms such as amotivation, alogia, and poverty of thought that he began experiencing in his early 20s. He has had >20 psychiatric hospitalizations in the context of medication nonadherence and has responded well to antipsychotic therapy in the past when compliant. There is no history consistent with major depressive or manic episodes. There is no history of substance use that would explain his symptomatology. There is no objective evidence or collateral that supports a diagnosis of personality pathology at this time. Thus, his most likely diagnosis remains schizophrenia. The patient has responded well to Invega Sustenna in the past. He missed his last dose that was scheduled to be on 05/16/2020. On mental status exam, the patient is largely euthymic and organized in thought. He is not manic or psychotic is negative for suicidal or homicidal ideation and is not observed to be responding to internal stimuli. Given that he has missed his last dose less than 4 weeks ago, it is indicated to restart him on his previous dose and to maintain a monthly dosing schedule for Invega. Assessment & Plan (04/18/2020 8:12 PM CASH REGISTER BALANCER): Mr. Schmidt is a 44 yo with a hx of schizophrenia, admitted for SI. Patient has a well established diagnosis of schizophrenia since his 20s, with positive sx including VH, delusions of reference and persecution and negative sx including isolation and diminished emotional expression. He does not have a hx of MDE or marcel or significant substance use. His hx is consistent with schizophrenia. Patient reported SI in the ED but now denies SI and all mood sx and reported that he needed a place to stay. Risk assessment: patient is at a chronic high risk due to his mental illness but is not at an acutely elevated risk. He can be discharged once a safe placement is established. PLAN: - patient received Invega Sustenna 117 mg in the ED - we will continue q28d dosing and next due is on 05/16 - SW to assist with safe discharge plan Resolved Problems Problem Noted Date Diagnosed Date Resolved Date Screen for colon cancer 04/01/202301/07 Infectious diarrhea 10/11/2021 05/23/20 Assessment & Plan (10/11/2021 12:31 PM CDT): Most likely infectious bloody diarrhea given timing and frequency. Physical exam is reassuring, and orthostatics vitals are negative. Labs in the ED were normal, but has had persistent diarrhea so will repeat to ensure he is not significantly hypovolemic requiring IVF. - Repeat CBC/CMP - If able to provide stool sample, will obtain for E. Coli testing - Avoid antibiotics/anti-diarrheals for now - Return precautions if persistent diarrhea with light-headedness, syncope, or no improvement within the next week. Manipulative behavior 04/22/20202021 Assessment & Plan (01/02/2021 9:01 AM CDT): Patient w/ hx of schizophrenia controlled with outpatient VELASCO p/w HI/SI and vague plan. Has history of manipulative behavior often seeking admission iso homelessness and reporting SI which quickly resolved upon admission. Presents after loss of domicile. No recent hx mood symptoms. No recent hx evidenced psychosis. Reports AH but later denies being symptomatic. Affect is flat. Not observed RTIS of TB. No evidence of delusions. Thought process linear, sequential. Content is appropriate to context/situation, and patient evidenced clear ability to rationally manipulate information. Patient later stating he is seeking long term and food. Exam appears consistent with controlled schizophrenia (flat affect, no positive symptoms). Stated HI/SI with no plan, and later admitting he is here in need of long term/food. Has history of stating SI in order to obtain admission for long term when recently losing domicile. Has recently lost domicile, and current presentation c/w this pattern of manipulative behavior. Differential: Z59.0 homelessness, vs z65.8 Other problem related to psychosocial circumstances (inability to find employment), vs Z59.4 lack of adequate food or safe drinking water, vs Z76.5 Malingering, vs schizophrenia, vs schizoaffective disorder, vs unspecified mood disorder Currently, active uncontrolled schizophrenia is unlikely given patient has been compliant with VELASCO (last admin 12/11) and shows no evidence of positive symptoms on exam. Schizoaffective disorder and unspecified mood disorder is unlikely given lack of affective components to his history. Most likely patient presents in setting of recent loss of domicile and other problems related to his psychosocial circumstances. Patient evidences resourcefulness and future planning, stating HI/SI without plan in order to obtain admission for food and long term, with plan to find another temp position and halfway housing. Patient states his secondary gain is food and long term. His presentation is c/w previous manipulative behavior. Patient is at elevated risk of harm to self due to his homelessness, lack of food, and chronic schizophrenia. However, his chronic schizophrenia is clearly controlled as patient evidenced no positive symptoms. Homelessness and lack of food cannot be modified moth exterminator by admission. Thus, patient would not benefit from psychiatric admission. Patient has bottle caser through [facility] who can assist patient with his primary complaints (food, long term). Provided number to patient for his area safety manager Iraj [facility] area safety manager ([phone]). Will plan to recommend social work consult to assist patient with obtaining a long term bed and resources for food as these could address his primary complaints. Patient has controlled schizophrenia that continues to be appropriat for outpatient management, with upcoming appointment next week. Will not recommend psychiatric admission. Suicide ideation 04/18/2020 04/18/2020 Type 2 diabetes mellitus wit hout complication, without long-term current use of insulin 08/12/2019 04/01/2023 Immunizations Immunization Administration Dates Next Due COVID-19 mRNA ([employer]) 0.3 m L (30 mcg) vaccine (12 years and up) 04/01/2023 Influenza, Quadrivalent, Spl it, Preservative Free, Intramuscular 04/01/2023 Influenza, Trivalent, Preservative Free, Intramu scular 06/22/2024 Pfizer SARS-CoV-2 Monovalent Vaccination (12+ Yrs) PURPLE 01/01/2021,12/11/2020 Pneumococcal Conjugate Pcv20 01/27/2024 Tdap 11/24/2022 Social History Tobacco Use Types Packs/Day Years Used Date Smoking Tobacco: Former Cigarettes Smokeless Tobacco: Never Tobacco Cessation:Counseling Given: Not Answered Alcohol Use Standard Drinks/Week Comments Yes 1 (1 standard drink = 0.6 oz pur e alcohol) Social Connection and Isolat ion Panel [NHANES] Answer Date Recorded In a typical week, how many times do you talk on the phone with family, friends, or neighbors? More than three times a week 12/15/2022 How often do you get togethe r with friends or relatives? More than three times a week 12/15/2022 How often do you attend chur ch or episcopal services? Never 12/15/2022 Do you belong to any clubs o r organizations such as rastafarian groups, unions, fraternal or athletic groups, or school groups? No 12/15/2022 How often do you attend meet ings of the clubs or organizations you belong to? Never 12/15/2022 Are you , , di vorced, , never , or living with a partner? 12/15/2022 AUDIT-C Answer Date Recorded Q1: How often do you have a drink containing alc ohol? Never 02/16/2024 Average Number of Drinks Not on file 024 Frequency of Binge Drinking Not on file 02/06 Overall Financial Resource Strain (CARDIA) Answe r Date Recorded How hard is it for you to pa y for the very basics like food, housing, medical care, and heating? Somewhat hard 12/15/2022 Hunger Vital Sign Answer Date Recorded Within the past 12 months, y ou worried that your food would run out before you got the money to buy more. Never true 01/27/20 24 Within the past 12 months, t he food you bought just didn't last and you didn't have money to get more. Never true 01/27/2024 PRAPARE - Transportation Answer Date Re corded In the past 12 months, has l ack of transportation kept you from medical appointments or from getting medications? No 12/06 In the past 12 months, has l ack of transportation kept you from meetings, work, or from getting things needed for daily living? No 12/15/2022 Housing Stability Vital Sign Answer Thang e Recorded In the last 12 months, was t here a time when you were not able to pay the mortgage or rent on time? Yes 12/15/2022 In the last 12 months, how many places have you lived? 1 12/15/2022 In the last 12 months, was t here a time when you did not have a steady place to sleep or slept in a long term (including now)? No 12/15/2022 Personal Safety Answer Date Recorded Have you ever been in or are you currently in a harmful physical or emotional relationship or is someone making you feel afraid or unsafe? Denies 06/20/2024 Education Answer Date Recorded What is the highest level of school you have completed or the highest degree you have received? High school graduate 04/22/2020 Sex and Gender Information Value Date Recorded Sex Assigned at Not on file Legal Sex Male 2:05 AM CASH REGISTER BALANCER Gender Identity Not on file Sexual Orientation Not on file Last Filed Vital Signs Vital Sign Reading Time Taken Comments Blood Pressure 116/76 06/22/2024 3:59 PM CASH REGISTER BALANCER Pulse 77 06/22/2024 3:59 PM CASH REGISTER BALANCER Temperature 36.7 C (98.1 F) 06/22/2024 3:59 PM CASH REGISTER BALANCER Respiratory Rate 18 06/22/2024 3:59 PM CASH REGISTER BALANCER Oxygen Saturation 98% 06/22/2024 3:59 PM CASH REGISTER BALANCER Inhaled Oxygen Concentration - - Weight 96.6 kg (213 lb) 06/22/2024 3:59 PM CASH REGISTER BALANCER Height 175.3 cm (5' 9 ) 06/22/2024 3:59 PM CASH REGISTER BALANCER Body Mass Index 31.45 06/22/2024 3:59 PM CASH REGISTER BALANCER Plan of Treatment Not on file Procedures Procedure Name Priority Date/Time Associated Diagnosis Comments ALBUMIN CREATININE RATIO, URINE Routine 06/22/2024 4:18 PM CASH REGISTER BALANCER Type 2 diabetes mellitus without complication, without long-term current use of insulin (HCC) POCT HEMOGLOBIN A1C Routine 06/22/2024 4 :08 PM CASH REGISTER BALANCER XR SHOULDER LEFT 2 OR MORE VIEWS ED 06/21/2024 5:27 AM CASH REGISTER BALANCER POCT GLUCOSE DEVICE Routine 06/21/2024 3 :38 AM CASH REGISTER BALANCER POCT GLUCOSE DEVICE Routine 06/20/2024 1 1:31 PM CASH REGISTER BALANCER POCT RAPID HIV ANTIBODY COMMUNITY SCREENING-BRAXTON ELIGIBLE Routine 05/19/2024 11:40 PM CASH REGISTER BALANCER POCT GLUCOSE DEVICE Routine 05/19/2024 1 1:37 PM CASH REGISTER BALANCER EGFR STAT 05/11/2024 9:01 PM CASH REGISTER BALANCER LIPID PANEL Routine 01/27/2024 9:56 AM CDT Type 2 diabetes mellitus without complication, without long-term current use of insulin (HCC) COLONOSCOPY 05/12/2023 2:47 PM CASH REGISTER BALANCER HEPATITIS C ANTIBODY Routine 11/22/2021 5:21 PM CDT Neuropathy from Last 3 Months or Most Recently Relevant to Health Maintenance Results * Albumin Creatinine Ratio, Urine (06/22/2024 4:18 PM CASH REGISTER BALANCER) Albumin Ur 14.5 mg/L Comment: Interpretive Data No reference range established. Current interpretive data was last revised 2018. Creatinine Ur 354.8 mg/dL [facility] Comment: Interpretive Data No reference range established. Current interpretive data was last revised 2018. Albumin Creatinine Ratio, Ur 4 1 - 29 mg/g [facility] Urine 06/22/2024 4:18 PM CASH REGISTER BALANCER 06/22/2024 5:29 PM CASH REGISTER BALANCER us Susana Adam MD LAB URINE ORDERABLES Final Result Performing Organization Address [facility] de Phone Number [facility] [place] [address] * (ABNORMAL) POCT hemoglobin A1c (06/22/2024 4:08 PM CASH REGISTER BALANCER) Hgb A1C, POC 8.4(H) 4.0 - 5.6 % Est Average Gluc POC 194 mg/dL [facility] Comment: The ADA recommends reporting an estimated Average Glucose (eAG) with all Hemoglobin A1c results using the equation derived from a study of 507 normal and diabetic adults. Minority populations were underrepresented and children were not included. (Diabetes Care 31:4674-2008, 2008). The eAG is not equivalent to a fasting glucose. Blood 06/22/2024 4:08 PM CASH REGISTER BALANCER 06/22/2024 4:08 PM CASH REGISTER BALANCER Susana Adam MD POINT OF CARE TEST ORDERABL ES Final Result Performing Organization Address [facility] de Phone Number [facility] [place] [address] * XR Shoulder Left 2 or More Views (06/21/2024 5:27 AM CASH REGISTER BALANCER) Anatomical Region Laterality Modality Upper Extremities, Shoulder Left Comp uted Radiography 06/21/2024 6:22 AM CASH REGISTER BALANCER Impressions 06/21/2024 7:37 AM CASH REGISTER BALANCER No acute fracture or dislocation. Glenohumeral and acromioclavicular joint spaces are normal. Imaged portions of the lungs are normal. Dictated by: Adi Decker MD The radiology attending physician has personally reviewed this study, and had reviewed and/or edited this written report and agrees with it. Electronically signed by: Pablito Norwood M.D., Ph.D Narrative 06/21/2024 7:37 AM CASH REGISTER BALANCER EXAMINATION: XR SHOULDER LEFT 2 OR MORE VIEWS HISTORY: Acute onset left shoulder pain, atraumatic Procedure Note Pablito Norwood MD PhD - 06/21/2024 EXAMINATION: XR SHOULDER LEFT 2 OR MORE VIEWS HISTORY: Acute onset left shoulder pain, atraumatic IMPRESSION: No acute fracture or dislocation. Glenohumeral and acromioclavicular joint spaces are normal. Imaged portions of the lungs are normal. Dictated by: Adi Decker MD The radiology attending physician has personally reviewed this study, and had reviewed and/or edited this written report and agrees with it. Electronically signed by: Pablito Norwood M.D., Ph.D us Don Griffith MD IMG XR PROCEDURES Melany l Result * POCT glucose (06/21/2024 3:38 AM CASH REGISTER BALANCER) [facility] Glucose, POC 167 70 - 199 mg/dL Comment:Glu2: RN/MD Notified Glucose comment 1 Glu2: RN/MD Notified [facility] Blood 06/21/2024 3:38 AM CASH REGISTER BALANCER 06/21/2024 3:38 AM CASH REGISTER BALANCER Notinfile Unknown LAB POCT ORDERABLES - DEVICE F inal Result Performing Organization Address [facility] Co de Phone Number [facility] Department [place] [address] * POCT glucose (06/20/2024 11:31 PM CASH REGISTER BALANCER) [facility] Glucose, POC 184 70 - 199 mg/dL Blood 06/20/2024 11:3 1 PM CASH REGISTER BALANCER 06/20/2024 11:31 PM CASH REGISTER BALANCER Notinfile Unknown LAB POCT ORDERABLES - DEVICE F inal Result Performing Organization Address [facility] Co de Phone Number [facility] Department [place] [address] * POCT Rapid HIV Antibody Community Screening-[facility] Eligible (05/19/2024 11:40 PM CASH REGISTER BALANCER) [facility] Rapid HIV, POC Negative Negative QC Control Line Acceptable Blood 05/19/2024 11:4 0 PM CASH REGISTER BALANCER us Abdiaziz Albarado MD POINT OF CARE TEST ORD ERABLES Final Result * POCT glucose (05/19/2024 11:37 PM CASH REGISTER BALANCER) Pathologist [facility] [place] Glucose, POC 172 70 - 199 mg/dL Blood 05/19/2024 11:3 7 PM CASH REGISTER BALANCER 05/19/2024 11:37 PM CASH REGISTER BALANCER us Notinfile Unknown LAB POCT ORDERABLES - DEVICE F inal Result [facility] Department [place] [address] * eGFR (05/11/2024 9:01 PM CASH REGISTER BALANCER) [facility] eGFR 84 >=60 mL/min/1. 73 m2 Comment: Interpretive Data Reference Interval Normal >/= 90 mL/min/1.73m2 Mildly decreased* 60 - 89 mL/min/1.73m2 Mildly to moderately decreased 45 - 59 mL/min/1.73m2 Moderately to severely decreased 30 - 44 mL/min/1.73m2 Severely decreased 15 - 29 mL/min/1.73m2 Kidney Failure < 15 mL/min/1.73m2 *Relative to young adult level Estimated glomerular filtration rate is determined by the 2020 CKD-EPI equation recommended by the National Kidney Foundation (A Unifying Approach to GFR Estimation: Recommendations of the NKF-ASK Task Force on Reassessing the Inclusion of Race in Diagnosing Kidney Disease, JASN 2020). The CKD-EPI equation should not be used for patients with unstable renal function and has not been validated in children and those over 70. Current interpretive data was last reviewed 2021. Blood 05/11/2024 9:01 PM CASH REGISTER BALANCER 05/11/2024 9:26 PM CASH REGISTER BALANCER us Yinka Boss MD LAB BLOOD ORDERABLES Melany gael Result [facility] Department [place] [address] * (ABNORMAL) Lipid panel (01/27/2024 9:56 AM CDT) Cholesterol 100 30 - 199 mg/dL Comment: Interpretive Data Ages < or = 19 years Acceptable: <170 mg/dL Borderline high: 170-199 mg/dL High: >or= 200 mg/dL Ages > or = 20 years Desirable: <200 mg/dL Borderline high: 200-239 mg/dL High: >or= 240 mg/dL Literature References: 1. Expert Panel on Integrated Guidelines for Cardiovascular Health and Risk Reduction in Children and Adolescents. Pediatrics 2011;128:S213 2. NCEP Expert Panel. Circulation 2004;110:227 Current Interpretive Data was last revised on 2018. Triglycerides 178(H) <=149 mg/dL [facility] Comment: Interpretive Data Ages < or = 9 years Acceptable: <75 mg/dL Borderline high: 75-99 mg/dL High: >or= 100 mg/dL Ages 10 to 20 years Acceptable: <90 mg/dL Borderline high: 90-129 mg/dL High: >or= 130 mg/dL Ages > or = 20 years Desirable: <150 mg/dL Borderline high: 150-199 mg/dL High: 200-499 mg/dL Very high: >or= 499 mg/dL Literature References: 1. Expert Panel on Integrated Guidelines for Cardiovascular Health and Risk Reduction in Children and Adolescents. Pediatrics 2011;128:S213 2. NCEP Expert Panel. Circulation 2004;110:227 Current Interpretive Data was last revised on 2018. HDL 27(L) >=40 mg/dL [facility] Comment: Interpretive Data Ages < or = 19 years Acceptable: >45 mg/dL Borderline low: 40-45 mg/dL Low: <40 mg/dL Ages > or = 20 years Desirable: >or= 60 mg/dL Low: <40 mg/dL Literature References: 1. Expert Panel on Integrated Guidelines for Cardiovascular Health and Risk Reduction in Children and Adolescents. Pediatrics 2011;128:S213 2. NCEP Expert Panel. Circulation 2004;110:227 Current Interpretive Data was last revised on 2018. LDL, calculated 43 <=129 mg/dL [facility] Comment: Interpretive Data Ages < or = 19 years Acceptable: <110 mg/dL Borderline high: 110-129 mg/dL High: >or= 130 mg/dL Ages > or = 20 years Optimal: <100 mg/dL Near optimal: 100-129 mg/dL Borderline high: 130-159 mg/dL High: >160 mg/dL Calculated using the Trino LDL-C estimating equation. This equation was implemented on 2024. Prior to this date LDL-C was estimated using the Friedewald equation. Literature References: 1. Expert Panel on Integrated Guidelines for Cardiovascular Health and Risk Reduction in Children and Adolescents. Pediatrics 2011;128:S213 2. NCEP Expert Panel. Circulation 2004;110:227 3. Trino Saleh et al. ARACELY Cardiol. 2020 October 06;5(5):540-548. doi: 10.1001/jamacardio.2020.0013 Current Interpretive Data was last revised on 2024. Non-HDL Cholesterol 73 mg/dL [facility] Comment: Interpretive Data Ages < or = 19 years Acceptable: <120 mg/dL Borderline high: 120-144 mg/dL High: >145 mg/dL Ages > or = 20 years When triglycerides are >200 mg/dL, Non-HDL cholesterol is a secondary target of therapy with treatment goals that are 30 mg/dL greater than the LDL cholesterol target. Literature References: 1. Expert Panel on Integrated Guidelines for Cardiovascular Health and Risk Reduction in Children and Adolescents. Pediatrics 2011;128:S213 2. NCEP Expert Panel. Circulation 2004;110:227 Current Interpretive Data was last revised on 2018. Chol/HDL ratio 4 [facility] Blood 01/27/2024 9:56 AM CDT 01/27/2024 10:33 AM CDT us Netsor Nino MD LAB BLOOD ORDERABLES F inal Result [facility] Department [place] [address] * COLONOSCOPY (05/12/2023 2:47 PM CASH REGISTER BALANCER) Anatomical Region Laterality Modality Other Narrative Procedure Note Abdiaziz Logan MD - 05/12/2023 2:47 PM [facility] Patient Name: Rodrick Schmidt Procedure Date: 05/12/2023 2:47 PM Date of : 1975 Admit Type: Outpatient Age: 47 Gender: Male Attending MD: Abdiaziz Logan M.D. Room: [facility] 3 Note Status: Finalized Procedure: Colonoscopy Indications: Screening for colorectal malignant neoplasm Referring MD: Susana Adam M.D. Providers: Abdiaziz Logan M.D., Sadie Dial M.D. Medicines: Monitored Anesthesia Care Complications: No immediate complications. Estimated Blood Loss: Estimated blood loss: none. Procedure: Pre-Anesthesia Assessment: - Prior to the procedure, a History and Physicalwas performed, and patient medications and allergieswere reviewed. The patient is competent. The risks and benefits of the procedure and the sedation optionsand risks were discussed with the patient. Allquestions were answered and informed consent was obtained. Patient identification and proposed procedure were verified by the physician in the pre-procedurearea. Mental Status Examination: alert and oriented.Airway Examination: normal oropharyngeal airway and neck mobility. Respiratory Examination: clear to auscultation. CV Examination: normal. Prophylactic Antibiotics: The patient does not requireprophylactic antibiotics. Prior Anticoagulants: The patient has taken no anticoagulant or antiplatelet agents. ASA Grade Assessment: II - A patient with mild systemic disease. After reviewing the risks and benefits,the patient was deemed in satisfactory condition to undergo the procedure. The anesthesia plan was touse monitored anesthesia care (MAC). Immediately priorto administration of medications, the patient was re-assessed for adequacy to receive sedatives. The heart rate, respiratory rate, oxygen saturations, blood pressure, adequacy of pulmonary ventilation,and response to care were monitored throughout the procedure. The physical status of the patient was re-assessed after the procedure. - Immediately prior to administration ofmedications, the patient was re-assessed for adequacy to receive sedatives. - The risks and benefits of the procedure and the sedation options and risks were discussed with the patient. All questions were answered and informed consent was obtained. The benefits, risks and alternatives of theprocedure and sedation were discussed and informed consentwas obtained. All questions were answered. Please referto the signed informed consent document in the medical record. The scope was passed under direct vision.The Colonoscope was introduced through the anus and advanced to the cecum, identified by appendiceal orifice and ileocecal valve. The colonoscopy was performed without difficulty. The patient tolerated the procedure well. The quality of the bowel preparation was good. Anatomical landmarks were photographed. The bowel preparation used was Co[employer]te via split dose instruction. AI Technology wasutilized during the procedure to aid in polyp detection. Findings: The perianal and digital rectal examinations were normal. Non-bleeding internal hemorrhoids were found during retroflexion. The hemorrhoids were medium-sized. The exam was otherwise without abnormality on direct and retroflexion views. Impression: - Non-bleeding internal hemorrhoids. - The examination was otherwise normal on directand retroflexion views. - No specimens collected. Recommendation: - Discharge patient to home. - Resume previous diet. - Continue present medications. Attending Participation: I was present and participated during the entire procedure from insertion to removal of the endoscope. Electronically signed by Abdiaziz Logan MD Abdiaziz Logan M.D. 05/12/2023 3:21:05 PM . Number of Addenda: 0 Note Initiated On: 05/12/2023 2:47 PM Recognized by the [place] [employer] for promoting quality in endoscopy us Abdiaziz Logan MD ENDOSCOPY PROCEDURES Final Result * Hepatitis C antibody (11/22/2021 5:21 PM CDT) Hep C Ab Nonreactive Nonreactive [facility] Comment:Antibodies to HCV no t detected. Does NOT exclude the possibility of recent exposure to HCV. Blood 11/22/2021 5:21 PM CDT 11/22/2021 5:36 PM CDT Adebayo Montoya MD LAB MICROBIOLOGY - GENERAL O RDERABLES Edited Result - Final [facility] One [facility] Department [place] [address] from Last 3 Months or Most Recently Relevant to Health Maintenance Insurance [facility] [employer]IC[facility] COMM[employer]ITY [employer]AN [place] [employer] [facility] Member Subscriber Plan / Payer (Ef fective 2023-Present) Name:Rodrick Schmidt Relation to Subscriber:Self Name:Rodrick Schmidt Payer ID:[id number] Group ID:Not on file Type:[place]ICAID [place] Address: [address] MEDICARE COMMUNITY PLAN [facility] [address] MEDICARE COMMUNITY PLAN [facility] MEDICARE COMMUNITY PLAN [address] [place], [place] [phone] Advance Directives For more information, please contact: [phone] * Full Code (Latest Code Status on File) Date Activated Date Inactivated Comments 02/16/2024 9:30 AM 02/16/2024 3:18 PM * Full Code Date Activated Date Inactivated Comments 05/12/2023 2:24 PM 05/12/2023 8:43 PM * Full Code Date Activated Date Inactivated Comments 04/22/2020 4:00 AM 04/24/2020 10:48 PM * Full Code Date Activated Date Inactivated Comments 02/05/2020 11:12 AM 02/06/2020 6:16 PM Care Teams Ecommerce Project Manager Relationship Specialty Start Date End Date Susana Adam MD PCP - General Internal Medicine 10/22/22 Greta Franco, lead radiologic technologist Failure Coordinator 02/24/23
--- OUTSIDE RECORDS SUMMARY | 2024-08-13 20:35 | XMS_ITS | Clinical Summary ---
Author Organization [facility] [employer] Address [address] [place] [address] Care Team Providers Care Institutional Asset Manager Name Role Phone Farideh Payne MD Primary Care Provider [phone] Source Comments [facility] [employer],non-owned Affiliates and Associated Physician Practices is amultiple site organization consisting of ambulatory clinics and hospital sitesin [place], [place], [place] and [place]. This disclosure is being madepursuant to the Care Everywhere program and may not contain all information available regarding this patient. Last updated 18.[employer] Allergies No known active allergies Medications * Be aware that medications may not be up to date on this document. Alwaysverify current medications with the patient. 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 Take 1 tablet by mouth [...] Gynecomastia 11/28/2019 Schizophrenia 08/03/2019 Paranoid schizophrenia 11/11/2018 Encounters Date Type Department Care Team Description 07/11/2024 5:39 PM [facility] - 07/11/2024 8:50 PM [facility] Emergency [facility] EMERGENCY DEPARTMENT [address] [place] [phone] Edilma Kyle MD Penile pain (Primary Dx); Abdominal pain, right lower quadrant Discharge Disposition: Home or Self Care 07/11/2024 Travel 07/08/2024 8:55 AM [facility] - 07/08/2024 9:45 AM [facility] Emergency [facility] EMERGENCY DEPARTMENT [address] [place] [phone] Pastor Vallejo MD Gastroesophageal reflux disease, unspecified whether esophagitis present (Primary Dx); Other chest pain Discharge Disposition: Home or Self Care 07/07/2024 Travel from Last 3 Months Immunizations Name Administration Dates Next Due INFLUENZA [...] Comments Blood Pressure 114/85 07/11/2024 5:39 PM FLOOR INSPECTOR Pulse 58 07/11/2024 5:39 PM FLOOR INSPECTOR Temperature 36.3 C (97.4 F) 07/11/2024 5:39 PM FLOOR INSPECTOR Respiratory Rate 18 07/11/2024 5:39 PM FLOOR INSPECTOR Oxygen Saturation 100% 07/11/2024 5:39 PM FLOOR INSPECTOR Inhaled Oxygen Concentration - - Weight 98.4 kg (217 lb) 07/11/2024 12:55 PM FLOOR INSPECTOR Height 175.3 cm (5' 9 ) 07/11/2024 12:55 PM FLOOR INSPECTOR Body Mass Index 32.05 07/11/2024 12:55 PM FLOOR INSPECTOR Plan of Treatment Health Maintenance Due Date Last Done Comments COLOGUARD (AGES 45-75) - COLON CA SCREENING [address] COLONOGRAPHY - COLON CA SCREENING 1977 FIT - COLON CA SCREENING 1977 FLEX SIG - COLON CA SCREENING 1977 HIV SCREENING 1992 HEPATITIS C SCREENING 12/16/1995 DTAP/TDAP/TD VACCINES (1 - Tdap) 1996 HEPATITIS B VACCINE (1 of 3 - 19+ 3-dose series) 1996 PNEUMOCOCCAL VACCINE (1 of 2 - PCV) 1996 COVID-19 VACCINE (5 - season) 2024 04/01/2023, 07/17/2021, 01/01/2021, Additional history exists DEPRESSION SCREENING 06/08/2024 MEDICARE AW CALENDAR YEAR 2024 SCREENING FOR DIABETES 07/07/2027 , 04/17/2024, 01/12/2024, Additional history exists ZOSTER VACCINE (1 of 2) 12/21/2027 COLONOSCOPY - COLON CA SCREENING 05/12/2033 05/12/2023 Colorectal Cancer Screening 05/12/2033 INFLUENZA VACCINE Completed 06/22/2024, 04/01/2023 HIB VACCINE Aged Out No longer eligi ble based on patient's age to complete this topic HPV VACCINE Aged Out No longer eligi ble based on patient's age to complete this topic MENINGOCOCCAL (Group B) VACCINE Aged Out No longer eligible based on patient's age to complete this topic MENINGOCOCCAL VACCINE Aged Out No chanda remington eligible based on patient's age to complete this topic Procedures Procedure Name Priority Date/Time Associated Diagnosis Comments URINALYSIS REFLEX MICROSCOPIC REFLEX CULTURE STAT 07/11/2024 7:27 PM FLOOR INSPECTOR CHLAMYDIA + GC AMPLIFIED PROBE STAT 07/11/2024 7:27 PM FLOOR INSPECTOR CARDIAC EKG ORDER 07/11/2024 11: 29 AM FLOOR INSPECTOR EKG 12-LEAD STAT 07/07/2024 8:39 PM FLOOR INSPECTOR Other chest pain TROPONIN-I HIGH SENSITIVE BASELINE + 1HR STAT 07/07/2024 8:31 PM FLOOR INSPECTOR MAGNESIUM BLOOD STAT 07/07/2024 8:31 PM FLOOR INSPECTOR COMPREHENSIVE METABOLIC PANEL STAT 07/07/2024 8:31 PM FLOOR INSPECTOR CBC W AUTO DIFFERENTIAL STAT 07/07/2024 8:31 PM FLOOR INSPECTOR XR CHEST 2VW STAT 07/07/2024 8:21 PM FLOOR INSPECTOR Other chest pain from Last 3 Months Results * CHLAMYDIA + GC AMPLIFIED PROBE (07/11/2024 7:27 PM FLOOR INSPECTOR) Chlamydia Amplified Probe Negative Negative 07/12/2024 6:42 AM FLOOR INSPECTOR [facility] GC Amplified Probe Negative Negative 07/12/2024 6:42 AM FLOOR INSPECTOR [facility] Microbiology URINE / Unknown Collection / Unknown 07/11/2024 7:27 PM FLOOR INSPECTOR 07/11/2024 7:30 PM FLOOR INSPECTOR Narrative [facility] - 07/12/2024 6:42 AM FLOOR INSPECTOR Results based on detection/no detection of ribosomal RNA by amplified method. Edilma Kyle MD LAB - MICROBIOLOGY O RDERABLES [facility] [address] [place], [place] [address] [phone] * (ABNORMAL) URINALYSIS REFLEX MICROSCOPIC REFLEX CULTURE (07/11/2024 7:27 PM FLOOR INSPECTOR) Color UA Straw Straw, Yellow 07/11/2024 7:38 PM [facility] Clarity UA Clear Clear 07/11/2024 7:38 PM [facility] Specific Richardson UA 1.007 1.005 - 1.030 07/11/2024 7:38 PM [facility] pH UA 6.0 5.0 - 8.0 pH 07/11/2024 7:38 PM [facility] Protein UA Negative Negative 07/11/2024 7:38 PM [facility] Glucose UA 3+(A) Negative 07/11/2024 7:38 PM [facility] Ketone UA Negative Negative 07/11/2024 7:38 PM [facility] Bilirubin UA Negative Negative 07/11/2024 7:38 PM [facility] Blood UA Negative Negative 07/11/2024 7:38 PM [facility] Nitrite UA Negative Negative 07/11/2024 7:38 PM [facility] Leukocyte Esterase Negative Negative 07/11/2024 7:38 PM [facility] Urobilinogen UA Negative Negative mg/dL 07/11/2024 7:38 PM [facility] Comment UA Microscopic not indicated. 07/11/2024 7:38 PM [facility] Urine URINE SPECIMEN OBTAINED BY CLEAN CATCH PROCEDURE / Unknown Collection / Unknown 07/11/2024 7:27 PM FLOOR INSPECTOR 07/11/2024 7:30 PM FLOOR INSPECTOR Narrative [facility] - 07/11/2024 7:38 PM FLOOR INSPECTOR Edilma Kyle MD LAB - URINALYSIS ORD ERABLES [facility] [address] [place] [address], [facility] [phone] * CARDIAC EKG ORDER (07/11/2024 11:29 AM FLOOR INSPECTOR) Narrative 07/11/2024 11:29 AM FLOOR INSPECTOR Ordered by an unspecified provider. Scanned Document CARDIAC SERVICES ORD ERABLES * EKG 12-LEAD (07/07/2024 8:39 PM FLOOR INSPECTOR) [facility] Ventricular Rate 60 BPM [facility] MUSE Atrial Rate 60 BPM [facility] P-R Interval 186 ms [facility] QRS Duration ms 84 ms [facility]USE Q-T Interval ms 384 ms [facility] QTC Calculation (Bezet) 384 ms [facility]USE Calculated P [place] 70 degrees [facility] MUSE Calculated R [place] 45 degrees [facility] MUSE Calculated T [place] 27 degrees [facility] MUSE Interpretation EKG NORMAL SINUS RHYTHM NORMAL ECG WHEN COMPARED WITH ECG OF 12-JAN-2024 14:08, CRITERIA FOR INFERIOR INFARCT ARE NO LONGER PRESENT Confirmed by VERONICA ALVAREZ MD ([id number]) on 07/12/2024 8:53:31 PM [facility] MUSE 07/07/2024 8:39 PM FLOOR INSPECTOR 07/12/2024 8:53 PM FLOOR INSPECTOR Pastor Huff MD ECG ORDERABLES [facility] * TROPONIN-I HIGH SENSITIVE BASELINE + 1HR (07/07/2024 8:31 PM FLOOR INSPECTOR) [facility] Troponin I High Sensitive <3 <=35 ng/L 07/07/2024 11:58 PM FLOOR INSPECTOR [facility] Blood BLOOD SPECIMEN / Unknown Venipuncture / Unknown 07/07/2024 8:31 PM FLOOR INSPECTOR 07/07/2024 9:11 PM FLOOR INSPECTOR Vania Juárez APRN-COMMUNITY INTEGRATION SPECIALIST LAB - DIRECTOR LOAN RY ORDERABLES [facility] [address] [place] [address], [facility] [phone] * CBC W AUTO DIFFERENTIAL (07/07/2024 8:31 PM FLOOR INSPECTOR) [facility] WBC 9.2 4.0 - 10.7 x10E9/L 07/07/2024 9:14 PM FLOOR INSPECTOR [facility] RBC Count 4.83 4.30 - 5.80 x10E12/L 07/07/2024 9:14 PM [facility] Hemoglobin 13.3 13.3 - 17.5 g/dL 07/07/2024 9:14 PM [facility] Hematocrit 39.8 38.7 - 51.1 % 07/07/2024 9:14 PM [facility] MCV 82.4 80.0 - 98.0 fL 07/07/2024 9:14 PM [facility] MCH 27.5 26.7 - 33.6 pg 07/07/2024 9:14 PM [facility] MCHC 33.4 31.7 - 36.3 g/dL 07/07/2024 9:14 PM [facility] RDW-CV 13.5 11.3 - 14.8 % 07/07/2024 9:14 PM [facility] Platelet Count 209 150 - 420 x10E9/L 07/07/2024 9:14 PM [facility] MPV 9.9 7.8 - 11.4 fL 07/07/2024 9:14 PM [facility] Neutrophil % 66.0 41.0 - 74.0 % 07/07/2024 9:14 PM [facility] Lymphocyte % 26.0 17.0 - 47.0 % 07/07/2024 9:14 PM [facility] Monocyte % 6.4 3.0 - 11.0 % 07/07/2024 9:14 PM [facility] Eosinophil % 1.1 0.0 - 7.0 % 07/07/2024 9:14 PM [facility] Basophil % 0.2 0.0 - 1.6 % 07/07/2024 9:14 PM [facility] Immature Granulocytes % 0.3 0.0 - 1.0 % 07/07/2024 9:14 PM [facility] Neutrophil Absolute 6.08 1.60 - 7.50 x10E9/L 07/07/2024 9:14 PM [facility] Lymphocyte Absolute 2.39 1.00 - 4.40 x10E9/L 07/07/2024 9:14 PM [facility] Monocyte Absolute 0.59 0.15 - 1.00 x10E9/L 07/07/2024 9:14 PM [facility] Eosinophil Absolute 0.10 0.00 - 0.60 x10E9/L 07/07/2024 9:14 PM [facility] Basophil Absolute 0.02 0.00 - 0.13 x10E9/L 07/07/2024 9:14 PM [facility] Blood BLOOD SPECIMEN / Unknown Venipuncture / Unknown 07/07/2024 8:31 PM FLOOR INSPECTOR 07/07/2024 9:11 PM [facility] Vania Hernandez Juárez AIR BRUSH OPERATOR-COMMUNITY INTEGRATION SPECIALIST LAB - HEMATOL OGY ORDERABLES [facility] [address] [place] [address], [facility] [phone] * (ABNORMAL) COMPREHENSIVE METABOLIC PANEL (07/07/2024 8:31 PM FLOOR INSPECTOR) BUN 9 7 - 26 mg/dL 07/08/2024 12:10 AM [facility] Creatinine 0.77 0.71 - 1.16 mg/dL 07/08/2024 12:10 AM [facility] Sodium 140 136 - 145 mmol/L 07/08/2024 12:10 AM [facility] Potassium 3.8 3.5 - 4.5 mmol/L 07/08/2024 12:10 AM [facility] Chloride 109(H) 98 - 107 mmol/L 07/08/2024 12:10 AM [facility] CO2 19(L) 22 - 29 mmol/L 07/08/2024 12:10 AM [facility] Glucose 185(H) 70 - 99 mg/dL 07/08/2024 12:10 AM [facility] Calcium 9.3 8.4 - 10.2 mg/dL 07/08/2024 12:10 AM [facility] Protein Total 6.8 6.0 - 8.3 g/dL 07/08/2024 12:10 AM [facility] Albumin 3.9 3.4 - 5.0 g/dL 07/08/2024 12:10 AM [facility] Bilirubin Total 0.3 0.2 - 1.2 mg/dL 07/08/2024 12:10 AM [facility] Alkaline Phosphatase 113 40 - 150 U/L 07/08/2024 12:10 AM [facility] ALT 42 5 - 55 U/L 07/08/2024 12:10 AM [facility] AST 28 5 - 34 U/L 07/08/2024 12:10 AM [facility] Anion Gap 12 6 - 16 07/08/2024 12:10 AM [facility] BUN/Creatinine Ratio 12 7 - 23 07/08/2024 12:10 AM [facility] Osmolality Calculated 293 275 - 295 mOsm/kg 07/08/2024 12:10 AM [facility] Albumin/Globulin Ratio 1.3 1.1 - 2.3 07/08/2024 12:10 AM [facility] eGFR by CKD-EPI >90 >=90 mL/min/1.7 3 m2 07/08/2024 12:10 AM [facility] Blood BLOOD SPECIMEN / Unknown Venipuncture / Unknown 07/07/2024 8:31 PM FLOOR INSPECTOR 07/07/2024 9:11 PM FLOOR INSPECTOR Vania RODRIGUEZ LAB - DIRECTOR LOAN RY ORDERABLES [address] [address], [facility] [phone] * MAGNESIUM BLOOD (07/07/2024 8:31 PM FLOOR INSPECTOR) Magnesium 1.9 1.6 - 2.6 mg/dL 07/07/2024 11:58 PM [facility] Blood BLOOD SPECIMEN / Unknown Venipuncture / Unknown 07/07/2024 8:31 PM FLOOR INSPECTOR 07/07/2024 9:11 PM FLOOR INSPECTOR Vania Juárez APRN-COMMUNITY INTEGRATION SPECIALIST LAB - DIRECTOR LOAN RY ORDERABLES [address] [address], [place] [phone] * XR CHEST 2VW (07/07/2024 8:21 PM FLOOR INSPECTOR) Anatomical Region Laterality Modality Chest Digital Radiogra phy 07/07/2024 8:55 PM FLOOR INSPECTOR Impressions 07/08/2024 8:46 AM FLOOR INSPECTOR IMPRESSION: No acute pulmonary process. > Dictated by Jackson Sanches DO (Mission Planner), 07/07/2024 8:55 PM. Leslye Field MD have personally reviewed and interpreted this examination/study. > Interpreting Provider: Leslye Downs MD on 07/08/2024 8:46 AM Narrative 07/08/2024 8:46 AM FLOOR INSPECTOR PROCEDURE: XR CHEST 2VW, DATE/TIME OF EXAM: 07/07/2024 8:21 PM, LOCATION [facility] INDICATION: R07.89: Other chest pain ADDITIONAL CLINICAL [...] DATE/TIME OF EXAM: 07/07/2024 8:21 PM, LOCATION [facility] INDICATION: R07.89: Other chest pain ADDITIONAL CLINICAL INFORMATION: Ordering Provider Reason For Exam: chest pain COMPARISON: Chest x-ray 04/18/2024 FINDINGS: There is no focal consolidation, pleural effusion, or pneumothorax. The cardiomediastinal silhouette is normal. The bony thorax is intact. Cholecystectomy clips in the right upper abdominal quadrant. IMPRESSION: No acute pulmonary process. > Dictated by Jackson Sanches DO (Mission Planner), 07/07/2024 8:55 PM. Leslye Field MD have personally reviewed and interpreted this examination/study. > Interpreting Provider: Leslye Downs MD on 07/08/2024 8:46 AM Vania Juárez APRN-COMMUNITY INTEGRATION SPECIALIST DIAGNOSTIC IM AGING ORDERABLES from Last 3 [...] 5:00 AM 10/03/2016 10:51 AM Care Teams Institutional Asset Manager Relationship Specialty Start Date End Date Farideh Payne MD PCP - General 08/12/19
--- OUTSIDE RECORDS SUMMARY | 2024-08-13 20:35 | XMS_ITS | Clinical Summary ---
Author Organization [facility] [place] [address] Address [address] [place] [phone] Care Team Providers Care Interactive Media Designer Name Role Phone Susana Adam MD Primary Care Provider Greta Franco RN Unavailable Unavaila ble Allergies No known active allergies Medications blood-glucose [...] needle, diabetic (Pen Needle) 31 gauge x /16 needleIndicatio ns:Type 2 diabetes mellitus without complication, [...] EVENING 30 capsule 1 4 Active lancets (OneTouch Delica Plus Lancet) 33 gauge misc USE [...] complication, without long-term current use of insulin ([facility]) Inject 12.5 mg under the skin every 7 days 0.5 mL 11 5 02/14/20 25 Active Problems Problem Noted Date Diagnosed [...] at high risk): ordered - HCV ( [id number]): NR 11/22/21 - Gonorrhea/Chlamydia (<24 or increased [...] 06/27/2022 Assessment & Plan (06/27/2022 9:27 AM CHIEF DATA OFFICER): SRx offered. Mixed hyperlipidemia 05/23/2022 Class 1 [...] - Dietary Counseling / ancillary support: consider natural resources extension educator next visit Plan: -Increase Mounjaro to 12.5mg qweek with uptitration every 4 weeks -CTN Metformin 1000mg BID, Jiardiance 10mg daily Assessment & Plan (06/27/2022 9:26 AM CHIEF DATA OFFICER): No diabetic retinopathy on dilated eye exam today. Continue strict BS control, annual dilated eye exams. Gynecomastia 08/12/2019 Overview (11/24/2022): Prev surgery in [place] for gynecomastia in 2012. Workup at that time unremarkable. No changes in breast size, pain, or discharge. - Referral to plastics today Schizophrenia 11/11/2018 Assessment & Plan (01/31/2024 2:45 PM CDT): Follows with [facility] Behavioral [facility] Dr. Dinh. Takes paliperidone 9 mg daily. Plan: - Continue to follow up with Psychiatrist - Management per psychiatry - Discontinued /old medications off medication list Assessment & Plan (01/02/2021 9:01 AM CDT): Patient has documented history of schizophrenia. Patient followed by [facility], and receives VELASCO. His last administration is [...] injection Assessment & Plan (06/12/2020 1:45 PM CHIEF DATA OFFICER): Mr. Schmidt is a 44 yo , [...] Invega. Assessment & Plan (04/18/2020 8:12 PM CHIEF DATA OFFICER): Mr. Schmidt is a 44 yo with [...] and next due is on 05/16 - to assist with safe discharge plan Resolved [...] information. Patient later stating he is seeking usp and food. Exam appears consistent with controlled schizophrenia (flat affect, no positive symptoms). Stated HI/SI with no plan, and later admitting he is here in need of usp/food. Has history of stating SI in order to obtain admission for usp when recently losing domicile. Has recently lost [...] order to obtain admission for food and usp, with plan to find another temp position and chcf housing. Patient states his secondary gain is food and usp. His presentation is c/w previous manipulative behavior. Patient is at elevated risk of harm to self due to his homelessness, lack of food, and chronic schizophrenia. However, his chronic schizophrenia is clearly controlled as patient evidenced no positive symptoms. Homelessness and lack of food cannot be modified chcf by admission. Thus, patient would not benefit from psychiatric admission. Patient has telephonic nurse case manager through [facility] who can assist patient with his primary complaints (food, usp). Provided number to patient for his plastic block boiler reliner Iraj [facility] plastic block boiler reliner ([phone]). Will plan to recommend social work consult to assist patient with obtaining a usp bed and resources for food as these could address his primary complaints. Patient has controlled schizophrenia that continues to be appropriat for outpatient management, with upcoming appointment next week. Will not recommend psychiatric admission. Suicide ideation 04/18/2020 04/18/2020 Type 2 diabetes mellitus wit hout complication, without long-term current use of insulin 08/12/2019 04/01/2023 Encounters Date Type Department Care Team Description 06/22/2024 3:50 PM CHIEF DATA OFFICER Office Visit [facility] [address] [place] [phone] Susana Adam MD Healthcare maintenance (Primary Dx); Gynecomastia; Anemia, unspecified type; Diabetic peripheral neuropathy associated with type 2 diabetes mellitus (HCC); Type 2 diabetes mellitus without complication, without long-term current use of insulin (HCC); Encounter for vaccination 06/22/2024 Transitional Care Outreach [facility] Care Coordination [address] [place] [address] Yusra Wiggins RN 06/21/2024 4:46 AM CHIEF DATA OFFICER - 06/21/2024 6:56 AM [facility] Emergency [facility] Emergency Department [address] [place] [phone] John Silver MD Acute pain of left shoulder (Primary Dx) Discharge Disposition: Discharge to home or self care 05/23/2024 Transitional Care Outreach [facility] Care Coordination [address] [place] [address] Yusra Wiggins RN 05/19/2024 11:27 PM CHIEF DATA OFFICER - 05/20/2024 1:33 AM [facility] Emergency [facility] Emergency Department [address] [place] [phone] Abdiaziz Albarado MD Bilateral foot pain (Primary Dx); Peripheral polyneuropathy; Constipation, unspecified constipation type Discharge Disposition: Discharge to home or self care from Last 3 Months Immunizations Immunization Administration Dates Next Due COVID-19 mRNA (PFIZER) 0.3 m L (30 mcg) vaccine (12 years and up) 04/01/2023 Influenza, Quadrivalent, Spl it, Preservative Free, Intramuscular 04/01/2023 Influenza, Trivalent, Preservative Free, Intramu scular 06/22/2024 Pfizer SARS-CoV-2 Monovalent Vaccination (12+ Yrs) PURPLE 01/01/2021,12/11/2020 Pneumococcal Conjugate Pcv20 01/27/2024 Tdap 11/24/2022 Surgical History Surgery Date Site/Laterality Comments CHOLECYSTECTOMY MASTECTOMY FOR GYNECOMASTIA Medical History Medical History Date Comments Paranoid schizophrenia (HCC) Controlled type 2 diabetes m ellitus, without long-term current use of insulin (HCC) 08/12/2019 Anxiety Seasonal allergies Anemia Hypertension GERD (gastroesophageal reflux disease) Gastric ulcer Social History Tobacco Use Types Packs/Day Years [...] often do you attend chur ch or orthodoxy services? Never 12/15/2022 Do you belong to any clubs o r organizations such as pentecostal groups, unions, fraternal or athletic groups, or [...] place to sleep or slept in a usp (including now)? No 12/15/2022 Personal Safety Answer [...] on file Legal Sex Male 2:05 AM CHIEF DATA OFFICER Gender Identity Not on file Sexual Orientation Not on file Obstetrics History Last Filed Vital Signs Vital Sign Reading Time Taken Comments Blood Pressure 116/76 06/22/2024 3:59 PM CHIEF DATA OFFICER Pulse 77 06/22/2024 3:59 PM CHIEF DATA OFFICER Temperature 36.7 C (98.1 F) 06/22/2024 3:59 PM CHIEF DATA OFFICER Respiratory Rate 18 06/22/2024 3:59 PM CHIEF DATA OFFICER Oxygen Saturation 98% 06/22/2024 3:59 PM CHIEF DATA OFFICER Inhaled Oxygen Concentration - - Weight 96.6 kg (213 lb) 06/22/2024 3:59 PM CHIEF DATA OFFICER Height 175.3 cm (5' 9 ) 06/22/2024 3:59 PM CHIEF DATA OFFICER Body Mass Index 31.45 06/22/2024 3:59 PM CHIEF DATA OFFICER Plan of Treatment Health Maintenance Due Date Last Done Comments Prostate Cancer Screening-PSA 1975 Hepatitis B Screening 12/21/1995 Regular Well Visit/Exam 18-64 12/21/1995 Depression Screening 04/18/2021 04/18/2020 Foot Exam 05/23/2023 05/23/2022 Dilated Eye Exam 06/27/2023 06/27/2022 Covid-19 Vaccine ( season) 2024 04/01/2023, 07/17/2021, 01/01/2021, Additional history exists Hemoglobin A1C 2024 06/22/2024, 01/07, 04/01/2023, Additional history exists Lipid Panel 01/26/2025 01/27/2024, 10/06, 07/19/2021, Additional history exists eGFR 05/11/2025 05/11/2024, 02/06, 01/27/2024, Additional history exists Albumin Creatinine Ratio, Urine 06/22/2025 06/22/2024, 02/24/2024, 12/19/2022, Additional history exists DTaP/Tdap/Td Vaccine (2 - Td or Tdap) 11/24/2032 11/24/2022 Colon Cancer Screening-Colonoscopy 05/12/2033 05/12/2023 Hepatitis C Screening Completed 11/22/2021 Pneumococcal vaccine <65 Completed 01/27/2024 Influenza Vaccine Completed 06/22/2024, 04/01/2023 HPV Vaccines Aged Out No longer eligi ble based on patient's age to complete this topic Procedures Procedure Name Priority Date/Time Associated Diagnosis Comments ALBUMIN CREATININE RATIO, URINE Routine 06/22/2024 4:18 PM CHIEF DATA OFFICER Type 2 diabetes mellitus without complication, without long-term current use of insulin (HCC) POCT HEMOGLOBIN A1C Routine 06/22/2024 4 :08 PM CHIEF DATA OFFICER XR SHOULDER LEFT 2 OR MORE VIEWS ED 06/21/2024 5:27 AM CHIEF DATA OFFICER POCT GLUCOSE DEVICE Routine 06/21/2024 3 :38 AM CHIEF DATA OFFICER POCT GLUCOSE DEVICE Routine 06/20/2024 1 1:31 PM CHIEF DATA OFFICER POCT RAPID HIV ANTIBODY COMMUNITY SCREENING-[place] ELIGIBLE Routine 05/19/2024 11:40 PM CHIEF DATA OFFICER POCT GLUCOSE DEVICE Routine 05/19/2024 1 1:37 PM CHIEF DATA OFFICER EGFR STAT 05/11/2024 9:01 PM CHIEF DATA OFFICER LIPID PANEL Routine 01/27/2024 9:56 AM CDT Type 2 diabetes mellitus without complication, without long-term current use of insulin (HCC) COLONOSCOPY 05/12/2023 2:47 PM CHIEF DATA OFFICER HEPATITIS C ANTIBODY Routine 11/22/2021 5:21 PM CDT Neuropathy from Last 3 Months or Most Recently Relevant to Health Maintenance Results * Albumin Creatinine Ratio, Urine (06/22/2024 4:18 PM CHIEF DATA OFFICER) Pathologist [facility] Albumin Ur 14.5 mg/L Comment: Interpretive Data No reference range established. Current interpretive data was last revised 2018. Creatinine Ur 354.8 mg/dL [facility] Comment: Interpretive Data No reference range established. Current interpretive data was last revised 2018. Albumin Creatinine Ratio, Ur 4 1 - 29 mg/g [facility] Urine 06/22/2024 4:18 PM CHIEF DATA OFFICER 06/22/2024 5:29 PM CHIEF DATA OFFICER us Susana Adam MD LAB URINE ORDERABLES Final Result [facility] Department [place] [address] * (ABNORMAL) POCT hemoglobin A1c (06/22/2024 4:08 PM CHIEF DATA OFFICER) Hgb A1C, POC 8.4(H) 4.0 - 5.6 % Est Average Gluc POC 194 mg/dL [facility] Comment: The ADA recommends reporting an estimated Average Glucose (eAG) with all Hemoglobin A1c results using the equation derived from a study of 507 normal and diabetic adults. Minority populations were underrepresented and children were not included. (Diabetes Care 31:4956-0090, 2008). The eAG is not equivalent to a fasting glucose. Blood 06/22/2024 4:08 PM CHIEF DATA OFFICER 06/22/2024 4:08 PM CHIEF DATA OFFICER us Susana Adam MD POINT OF CARE TEST ORDERABL ES Final Result [facility] [place] [address] * XR Shoulder Left 2 or More Views (06/21/2024 5:27 AM CHIEF DATA OFFICER) Anatomical Region Laterality Modality Upper Extremities, Shoulder Left Comp uted Radiography 06/21/2024 6:22 AM CHIEF DATA OFFICER Impressions 06/21/2024 7:37 AM CHIEF DATA OFFICER No acute fracture or dislocation. Glenohumeral and acromioclavicular joint spaces are normal. Imaged portions of the lungs are normal. Dictated by: Adi Decker MD The radiology attending physician has personally reviewed this study, and had reviewed and/or edited this written report and agrees with it. Electronically signed by: Pablito Norwood M.D., Ph.D Narrative 06/21/2024 7:37 AM CHIEF DATA OFFICER EXAMINATION: XR SHOULDER LEFT 2 OR MORE VIEWS HISTORY: Acute onset left shoulder pain, atraumatic Procedure Note Pablito Norwood MD PhD - 06/21/2024 EXAMINATION: XR SHOULDER LEFT 2 OR MORE VIEWS HISTORY: Acute onset left shoulder pain, atraumatic IMPRESSION: No acute fracture or dislocation. Glenohumeral and acromioclavicular joint spaces are normal. Imaged portions of the lungs are normal. Dictated by: Aid Decker MD The radiology attending physician has personally reviewed this study, and had reviewed and/or edited this written report and agrees with it. Electronically signed by: Pablito Norwood M.D., Ph.D us Don Griffith MD IMG XR PROCEDURES Melany l Result * POCT glucose (06/21/2024 3:38 AM CHIEF DATA OFFICER) Glucose, POC 167 70 - 199 mg/dL Comment:Glu2: RN/MD Notified Glucose comment 1 Glu2: RN/MD Notified [facility] Blood 06/21/2024 3:38 AM CHIEF DATA OFFICER 06/21/2024 3:38 AM CHIEF DATA OFFICER Notinfile Unknown LAB POCT ORDERABLES - DEVICE F inal Result Performing Organization Address [facility] Co de Phone Number [facility] [place] [address] * POCT glucose (06/20/2024 11:31 PM CHIEF DATA OFFICER) Glucose, POC 184 70 - 199 mg/dL Blood 06/20/2024 11:3 1 PM CHIEF DATA OFFICER 06/20/2024 11:31 PM CHIEF DATA OFFICER Result [facility] Notinfile Unknown LAB POCT ORDERABLES - DEVICE F inal Result Performing Organization Address [facility] Co de Phone Number [facility] [place] [address] * POCT Rapid HIV Antibody Community Screening-[place] Eligible (05/19/2024 11:40 PM CHIEF DATA OFFICER) Rapid HIV, POC Negative Negative QC Control Line Acceptable Blood 05/19/2024 11:4 0 PM CHIEF DATA OFFICER us Abdiaziz Albarado MD POINT OF CARE TEST ORD ERABLES Final Result * POCT glucose (05/19/2024 11:37 PM CHIEF DATA OFFICER) Glucose, POC 172 70 - 199 mg/dL Blood 05/19/2024 11:3 7 PM CHIEF DATA OFFICER 05/19/2024 11:37 PM CHIEF DATA OFFICER us Notinfile Unknown LAB POCT ORDERABLES - DEVICE F inal Result Performing Organization Address [facility] Co de Phone Number [facility] Department [place] [address] * eGFR (05/11/2024 9:01 PM CHIEF DATA OFFICER) [facility] eGFR 84 >=60 mL/min/1. 73 m2 Comment: [...] last reviewed 2021. Blood 05/11/2024 9:01 PM CHIEF DATA OFFICER 05/11/2024 9:26 PM CHIEF DATA OFFICER us Yinka Boss MD LAB BLOOD ORDERABLES Melany l Result Performing Organization Address City/[facility]/ZIP Co de Phone Number [facility] [place] [address] * (ABNORMAL) Lipid panel (01/27/2024 9:56 AM [...] revised on 2018. Triglycerides 178(H) <=149 mg/dL [facility] Comment: Interpretive Data Ages < or [...] revised on 2018. HDL 27(L) >=40 mg/dL [facility] Comment: Interpretive Data Ages < or [...] on 2018. LDL, calculated 43 <=129 mg/dL [facility] Comment: Interpretive Data Ages < or [...] revised on 2024. Non-HDL Cholesterol 73 mg/dL [facility] Comment: Interpretive Data Ages < or [...] last revised on 2018. Chol/HDL ratio 4 [facility] Blood 01/27/2024 9:56 AM CDT 01/27/2024 10:33 AM CDT us Nestor Nino MD LAB BLOOD ORDERABLES F inal Result [facility] Department of Laboratories [place], [place] [phone] * COLONOSCOPY (05/12/2023 2:47 PM CHIEF DATA OFFICER) Anatomical Region Laterality Modality Other Narrative Procedure Note Abdiaziz Logan MD - 05/12/2023 2:47 PM [facility] Patient Name: Rodrick Schmidt Procedure Date: 05/12/2023 2:47 PM Date of : 1975 Admit Type: Outpatient Age: 47 Gender: Male Attending MD: Abdiaziz Logan M.D. Room: [facility] ENDOSCOPY ROOM 3 Note Status: Finalized Procedure: [...] On: 05/12/2023 2:47 PM Recognized by the [employer] for promoting quality in endoscopy us Abdiaziz Logan MD ENDOSCOPY PROCEDURES Final Result * Hepatitis C antibody (11/22/2021 5:21 PM CDT) Hep C Ab Nonreactive Nonreactive [facility] Comment:Antibodies to HCV no t detected. Does NOT exclude the possibility of recent exposure to HCV. Blood 11/22/2021 5:21 PM CDT 11/22/2021 5:36 PM CDT us Adebayo Montoya MD LAB MICROBIOLOGY - GENERAL O RDERABLES Edited Result - Final [facility] Department of Laboratories [place], [place] [phone] from Last 3 Months or Most Recently Relevant to Health Maintenance Insurance [facility] MEDICARE COMMUNITY PLAN [place] [facility] S[facility] DIVISION MEDICARE COMMUNITY PLAN [facility] DIVISION MEDICARE COMMUNITY PLAN [address] [place] [phone] [facility] MEDICARE COMMUNITY PLAN [address] [place] [phone] Advance Directives For more information, please contact: [phone] * Full Code (Latest Code Status on File) Date Activated Date Inactivated Comments 02/16/2024 9:30 AM 02/16/2024 3:18 PM * Full Code Date Activated Date Inactivated Comments 05/12/2023 2:24 PM 05/12/2023 8:43 PM * Full Code Date Activated Date Inactivated Comments 04/22/2020 4:00 AM 04/24/2020 10:48 PM * Full Code Date Activated Date Inactivated Comments 02/05/2020 11:12 AM 02/06/2020 6:16 PM Care Teams Interactive Media Designer Relationship Specialty Start Date End Date Susana Adam MD PCP - General Internal Medicine 10/22/22 Greta Franco, solar energy system installer Failure Coordinator 02/24/23
--- NOTE | 2024-08-13 20:39 | ED.SOB ---
HPI - SOB/Dyspnea General Chief Complaint: Shortness of Breath/Dyspnea Stated Complaint: CP, SOB, LLE PAIN, SORE THROAT Source: patient and EMS Mode of arrival: EMS Limitations: no limitations History of Present Illness HPI Narrative: This is a 48-year-old male, with history of diabetes, brought in by EMS from a [facility] complaining of chest pain, shortness of breath and left leg pain. The patient states his leg pain and chest pain began last night. They were described as sharp, lasting approximately 5-10 minutes and not recurring. He states he feels as if his legs are going to go out and that he is dehydrated. He has no other complaints at this time. Related Data Allergies Allergy/AdvReac Type Severity Reaction Status Date / Time No Known Allergies Allergy Verified 08/13/24 20:26 Review of Systems Review of Systems: All systems reviewed & are unremarkable except as noted in HPI and below PMFSH Past Medical History Medical History Diabetes mellitus Surgical History Surgical History History of cholecystectomy Social History Social History (Updated 08/13/24 @ 20:41 by Leo Florence MD) Smoking status: Never smoker Alcohol intake: never Substance use: never Exam Narrative: GENERAL: Well-developed, well-nourished, and in no acute distress. HEAD: Normocephalic, atraumatic. EYES: PERRLA and EOMI. ENT: Nares clear, no rhinorrhea or epistaxis. Mucous membranes moist. Oropharynx without tonsillar hypertrophy exudate or other lesions. CHEST: Clear to auscultation. No respiratory distress. No wheezes rales or rhonchi HEART: Regular rate and rhythm. No murmur heard. Normal peripheral pulses. ABDOMEN: Soft, nontender, nondistended, normal active bowel sounds. EXTREMITIES: Normal range of motion. No edema. SKIN: Warm, dry, no rash. NEURO: Alert and oriented x3. No focal deficit. Moving all 4 limbs spontaneously PSYCH: Normal mood and affect. Course Course Emergency Course: 20:30 - The patient now requests screening for gonorrhea chlamydia. 21:24 - Chest x-ray not concerning for acute cardiopulmonary process. CBC demonstrates mildly elevated white blood cell count of 10.6 a mildly decreased hemoglobin of 13.9 but is otherwise unremarkable. Chemistries demonstrated glucose of 252 but is otherwise unremarkable with an anion gap of 11. Troponin negative. Heart score 2. COVID, influenza and RSV pending. 22:49 - COVID, influenza and RSV negative. Gonorrhea and chlamydia negative. I do not suspect ACS. Will discharge with recommendation for primary care follow-up. I discussed the findings and recommendations with the patient. Discussed return and emergency precautions including signs/symptoms of ACS and respiratory distress. The patient voiced understanding and agreement with the plan. All questions answered to his satisfaction. Vital Signs Vital signs: Vital Signs Pulse Rate 74 08/13/24 20:03 Respiratory Rate 17 08/13/24 20:03 Blood Pressure 123/80 08/13/24 20:03 Pulse Oximetry 99 08/13/24 20:03 Oxygen Delivery Room Air 08/13/24 20:03 Temperature 97.9 F 08/13/24 20:10 Pulse Rate 78 08/13/24 20:10 Respiratory Rate 13 08/13/24 20:10 Blood Pressure 123/80 08/13/24 20:10 Pulse Oximetry 99 08/13/24 20:10 Oxygen Delivery Room Air 08/13/24 20:08 MDM - SOB/Dyspnea MDM Narrative Medical decision making narrative: Plan: Labs, IV fluids, imaging, EKG, troponin, reassess Differential Diagnosis Differential diagnosis: Likely other (ACS, COVID, pneumonia, influenza, RSV, dehydration, metabolic abnormality, other) Lab Data 08/13/24 20:45 08/13/24 20:45 Labs: Lab Results 08/13/24 08/13/24 08/13/24 Range/Units 20:31 20:45 21:11 WBC 10.6 H (4.5-10.0) K/mm3 RBC 5.02 (4.6-6.20) M/mm3 Hgb 13.9 L (14.0-18.0) g/dL Hct 41.7 L (42.0-52.0) % MCV 83.1 (80-100) fl MCH 27.7 (26-34) pg MCHC 33.3 (32-36) g/dl RDW 13.9 (11.5-14.5) % Plt Count 205 (150-375) k/mm3 MPV 9.5 (7.4-10.4) fl Immature Gran % (Auto) 0.3 (0-0.5) % Neut % (Auto) 69.3 (45.5-73.1) % Lymph % (Auto) 23.6 (18.3-44.2) % Union % (Auto) 5.9 (2.6-8.5) % Eos % (Auto) 0.6 (0-4.4) % Baso % (Auto) 0.3 (0.2-1.2) % Lymph # (Auto) 2.49 (0.9-3.2) K/mm3 Union # (Auto) 0.6 (0.1-0.6) K/mm3 Eos # (Auto) 0.1 (0-0.3) K/mm3 Baso # (Auto) 0.0 (0.0-0.1) K/mm3 Abs Immat Gran (auto) 0.03 (0.00-0.031) K/mm3 Absolute Neuts (auto) 7.3 H (1.3-6.7) K/mm3 Absolute Nucleated RBC 0.000 (0.0-0.012) K/mm3 Nucleated RBC % 0.0 (0.0-0.2) % PT 14.9 H (11.1-14.7) Seconds INR 1.1 Sodium 137 (137-145) mmol/L Potassium 4.3 (3.4-5.0) mmol/L Chloride 103 (98-107) mmol/L Carbon Dioxide 23 (22-30) mmol/L Anion Gap 11 (4-12) mmol/L BUN 11 (9-20) mg/dL Creatinine 0.73 (0.7-1.3) mg/dL Estim Creat Clear Calc 126 ml/min Estimated GFR > 60 (59 - ) Glucose 252 H (65-110) mg/dL Calcium 9.4 (8.4-10.2) mg/dL Total Bilirubin 0.4 (0.2-1.3) mg/dL AST 35 (17-59) U/L ALT 40 (6-50) U/L Alkaline Phosphatase 109 (38-126) U/L Troponin I < 0.012 (0.000-0.034) ng/mL Total Protein 8.0 (6.3-8.2) g/dL Albumin 4.3 (3.5-5.1) g/dL Lipase 189 (23-300) U/L C. trachomatis (PCR) Not detected (NOT DETECTE) Influenza A (RT-PCR) Negative (Negative) Influenza B (RT-PCR) Negative (Negative) N. gonorrhoeae (PCR) Not detected (NOT DETECTE) RSV (RT-PCR) Negative (Negative) SARS-CoV-2 RNA (RT-PCR) Negative (Negative) ECG Data EKG #1: Attestation: I personally reviewed and interpreted this ECG as follows: ECG completion date: 08/13/24 ECG completion time: 20:07 Prior ECG tracings: not available for review Interpretation: Sinus rhythm, rate 75, indeterminate axis, no ST segment elevations concerning for ischemia, T-wave inversions in lead 3. Normal intervals with QTC of 384. Discharge Plan Discharge Clinical Impression: Atypical chest pain, Screen for STD (sexually transmitted disease) Patient Disposition: Home, Self-Care Condition: Stable Instructions: Antibiotic Form, Chest Pain (ED) Additional Instructions: You were seen in the emergency department. Your labs and EKG are not concerning for injury to the heart. A chest x-ray was not concerning for pneumonia or other infection. Your blood glucose was elevated but improved with IV fluids. You tested negative for COVID, influenza and RSV as well as negative for gonorrhea and chlamydia. I recommend following up with your primary care doctor. If you develop new or worsening chest pain, shortness of breath, loss of consciousness, or if you have other emergent concerns for life, limb, or eyesight, return to the emergency department. Patient Language: Luxembourger Follow-up/Referrals: UNKNOWN,DOCTOR [Primary Care Provider] - 1 Week Time of Disposition: 22:51
[2024-08-13 20:54] LABS: Basophils Percent Auto 0.3 % (0.2-1.2); Eosinophils Absolute Auto 0.1 K/mm3 (0-0.3); Eosinophils Percent Auto 0.6 % (0-4.4); Hematocrit 41.7 % (42.0-52.0); Hemoglobin 13.9 g/dL (14.0-18.0); Immature Granulocyte Absolute 0.03 K/mm3 (0.00-0.031); Immature Granulocyte Percent A 0.3 % (0-0.5); Lymphocytes Absolute Auto 2.49 K/mm3 (0.9-3.2); Lymphocytes Percent Auto 23.6 % (18.3-44.2); Mean Corpuscular HGB Conc 33.3 g/dl (32-36); Mean Corpuscular Hemoglobin 27.7 pg (26-34); Mean Corpuscular Volume 83.1 fl (80-100); Mean Platelet Volume 9.5 fl (7.4-10.4); Monocytes Absolute Auto 0.6 K/mm3 (0.1-0.6); Monocytes Percent Auto 5.9 % (2.6-8.5); Neutrophils Absolute Auto 7.3 K/mm3 (1.3-6.7); Neutrophils Percent Auto 69.3 % (45.5-73.1); Platelet Count Result 205 k/mm3 (150-375); Red Blood Count 5.02 M/mm3 (4.6-6.20); Red Cell Distribution Width 13.9 % (11.5-14.5); White Blood Count 10.6 K/mm3 (4.5-10.0)
[2024-08-13 21:06] LABS: Alanine Aminotransferase 40 U/L (6-50); Albumin Level 4.3 g/dL (3.5-5.1); Alkaline Phosphatase 109 U/L (38-126); Anion Gap 11 mmol/L (4-12); Aspartate Amino Transferase 35 U/L (17-59); Bilirubin,Total 0.4 mg/dL (0.2-1.3); Blood Urea Nitrogen 11 mg/dL (9-20); Calcium 9.4 mg/dL (8.4-10.2); Carbon Dioxide 23 mmol/L (22-30); Chloride 103 mmol/L (98-107); Estimated CRCL calculation 126 ml/min; Estimated Glomerular Filt Rate > 60; Glucose 252 mg/dL (65-110); Lipase 189 U/L (23-300); Potassium 4.3 mmol/L (3.4-5.0); Sodium 137 mmol/L (137-145)
[2024-08-13 21:07] LABS: INR 1.1; Prothrombin Time 14.9 Seconds (11.1-14.7)
[2024-08-13 21:16] LABS: Troponin I < 0.012 ng/mL (0.000-0.034)
[2024-08-13 21:29] LABS: Influenza A QL RT-PCR Negative (Negative); Influenza B QL RT-PCR Negative (Negative); RSV RNA, RT-PCR Negative (Negative); SARS-CoV-2 RNA PCR Negative (Negative)
[2024-08-13 22:44] LABS: Chlamydia trachomatis NOT DETECTED (NOT DETECTE); Neisseria gonorrhoeae PCR NOT DETECTED (NOT DETECTE)
[2024-08-13 23:06] VITALS: BP 132/83; PULSE 75; RESP 16; O2SAT 100
[2024-08-13 23:08] VITALS: BP 132/83; PULSE 75; RESP 16; O2SAT 100
== END 2024-08-13 23:10 | disposition home or self-care (01) ==
PROVIDERS: Emergency Provider Preventive Medicine Aerospace Medicine
DX: R07.89 Other chest pain (principal); Z11.3 Encounter for screening for infections with a predominantly sexual mode of transmission; E11.9 Type 2 diabetes mellitus without complications; Z20.822 Contact with and (suspected) exposure to COVID-19
CPT/HCPCS: 36415; 71046; 80053; 83690; 84484; 85025; 85610; 87491; 87591; 87637; 93005; 96360; 99284; A9270; J7030